=== PATIENT | female | born 1960 | race Caucasian/White ===

== ENCOUNTER → 2019-11-04 09:10 | Outpatient (CLI) | payer MEDICARE, SELFPAY ==
--- NOTE | ~2019-11-04 | DEXA_ITS ---
Bone Density Report Name: Sierra Rod Age: 59 Sex: Female Ethnicity: White Date of : 1960 Indication: postmenopausal; screening for osteoporosis; height loss; seizure disorder; hysterectomy; Referring Provider: FABIO FERRIS Study: Bone densitometry was performed. Exam Date: November 04, 2019 Accession number: [id number] Bone Density: Region BMD T-score Z-score Classification AP Spine (L1, L2) 0.959 -0.2 1.1 Normal Femoral Neck (Left) 0.742 -1.0 0.3 Normal Total Hip (Left) 0.897 -0.4 0.5 Normal Femoral Neck (Right) 0.717 -1.2 0.0 Osteopenia Total Hip (Right) 0.835 -0.9 0.0 Normal Total Hip Mean 0.866 -0.7 0.3 Normal World Health Organization criteria for BMD impression classify patients as: Normal (T-score at or above -1.0), Osteopenia (T-score between -1.0 and -2.5), or Osteoporosis (T-score at or below -2.5). 10-year Fracture Risk(1): Major Osteoporotic Fracture 6.7% Hip Fracture 0.4% Reported Risk Factors: [place] (), Neck BMD=0.717, BMI=33.1 (1) FRAX(R) Version 3.08. Fracture probability calculated for an untreated patient. Fracture probability may be lower if the patient has received treatment. Clinical Information Provided by Patient: Has used the following medications: Vitamin D, Calcium Has the following medical conditions: Any Seizure Disorders, Hysterectomy Patient maximum height was 64.5 Menopause Age: 26 Onset of menses at age 13 Number of children 0 Impression: The patient has low bone mass, based on the Right Femoral Neck T-score. The patient has an estimated ten-year risk of hip fracture of 0.4% and an estimated ten-year risk of major fracture of 6.7%, based on the WHO FRAX algorithm. Discussion: BONE DENSITY IS LOW AT ONE OR MORE SKELETAL SITES. This patient's lowest T-score is low at one or more skeletal sites. It meets the World Health Organization's (WHO) criteria for ?low bone mass? (T-score between -1.0 and -2.5). The patient's 10-year risk of fracture as calculated by FRAX is less than the threshold where pharmacological therapy is recommended by the National Osteoporosis Foundation (NOF). However, all treatment decisions require clinical judgment and consideration of individual patient factors, including patient preferences, comorbidities, previous drug use, risk factors not captured in the FRAX model (e.g., frailty, falls, vitamin D deficiency, increased bone turnover, interval significant decline in bone density) and possible under or overestimation of fracture risk by FRAX. The patient should follow a healthful lifestyle (good nutrition with adequate calcium and vitamin D, and appropriate weight-bearing exercise). Follow-Up: Consider repeating this study in 2 to 3 years to reassess this patient's status, or sooner if there is some new cl
== END ==
DX: Z78.0 Asymptomatic menopausal state (principal); M85.88 Other specified disorders of bone density and structure, other site
CPT/HCPCS: 77080

== ENCOUNTER 2019-11-06 02:37 | Emergency (ER) | payer MEDICARE, SELFPAY ==
[2019-11-06] VITALS (10 sets, daily range): BP systolic 136–173; BP diastolic 60–98; PULSE 74–93; RESP 10–17; TEMP 36.9; O2SAT 97–100
--- NOTE | ~2019-11-06 | XR_ITS ---
EXAMINATION: XR chest 2V 11/06/2019 03:08 INDICATION: Midline chest pain PROCEDURE: PA and lateral views of the chest COMPARISON: Comparison to multiple prior studies sequentially, with oldest reviewed study dated 05/2009. FINDINGS: The lungs are clear. The cardiomediastinal silhouette is within normal limits. There are no pleural effusions. There is no pneumothorax suspected. There is surgical hardware overlying the lower cervical and upper lumbar spine. IMPRESSION: 1: NO ACUTE CARDIOPULMONARY DISEASE. Reviewed, dictated and finalized at location A.
--- NOTE | 2019-11-06 02:44 | ED.CHESTPAIN ---
HPI - Chest Pain General Chief Complaint: Chest Pain Stated Complaint: chest pain Time Seen by Provider: 11/06/19 02:44 Source: patient and EMS Mode of arrival: EMS Limitations: no limitations History of Present Illness HPI narrative: The patient is a 59-year-old woman with history of previous CVA,seizure disorder, diabetes, hypertension, type 2 diabetes mellitus, and STEMI in 2019 who presents for evaluation of chest pain. Patient states chest pain awaken her from sleep, described as epigastric in nature with radiation into the chest and mildly to the left side. No radiation to the jaw, neck, shoulder or arm. Patient states she had an associated headache and dizziness with the pain. She denies diaphoresis but reports nausea, and mild shortness of breath that is since resolved. No fever, cough or hemoptysis. Chest pain is currently mild in nature. Patient states this does not feel like acid reflux type pain. She states that the difference between this and when she had her NSTEMI is that with that she was diaphoretic. Patient follows with a r&d lab technician Dr. Chase at [facility]. Patient describes the dizziness as a unsteady feeling, denies current spinning sensation. No current double vision. Related Data Home Medications Medication Instructions Recorded Confirmed calcitriol 11/06/19 cholecalciferol (vitamin D3) 100 mcg PO DAILY 11/06/19 clopidogrel 75 mg PO DAILY 11/06/19 cyclosporine 1 drp OPHTHALMIC (EYE) Q12H 11/06/19 ergocalciferol (vitamin D2) 1,250 mcg PO WEEKLY 11/06/19 fenofibrate micronized 200 mg PO DAILY 11/06/19 furosemide 20 mg PO DAILY 11/06/19 metoprolol succinate 50 mg PO DAILY 11/06/19 morphine 15 mg PO Q8H 11/06/19 omeprazole 11/06/19 oxcarbazepine [Trileptal] 300 mg PO BID 11/06/19 polyethylene glycol 3350 [Miralax] 17 g PO DAILY 11/06/19 potassium chloride meq PO 11/06/19 tizanidine 2 mg PO Q8H PRN 11/06/19 topiramate 11/06/19 Allergies Allergy/AdvReac Type Severity Reaction Status Date / Time duloxetine Allergy Mild Unknown Verified 11/06/19 03:06 lamotrigine Allergy Mild Unknown Verified 11/06/19 03:06 meperidine Allergy Mild Unknown Verified 11/06/19 03:06 methadone Allergy Mild Unknown Verified 11/06/19 03:06 simvastatin Allergy Mild Unknown Verified 11/06/19 03:06 sumatriptan Allergy Mild Unknown Verified 11/06/19 03:06 acetaminophen Allergy Unknown Unknown Verified 11/06/19 03:06 adhesive tape Allergy Unknown Unknown Verified 11/06/19 03:06 baclofen Allergy Unknown Unknown Verified 11/06/19 03:06 ciprofloxacin Allergy Unknown Unknown Verified 11/06/19 03:06 hydromorphone Allergy Unknown Unknown Verified 11/06/19 03:06 Influenza Virus Vaccines Allergy Unknown Dyspnea / Verified 11/06/19 03:06 SOB metrizamide Allergy Unknown Unknown Verified 11/06/19 03:06 vancomycin Allergy Unknown Unknown Verified 11/06/19 03:06 Contrast Media Allergy Mild Unknown Uncoded 11/06/19 03:06 DULOXETINE HCL Allergy Mild Unknown Uncoded 11/06/19 03:06 SUMATRIPTAN SUCCINATE Allergy Mild Unknown Uncoded 11/06/19 03:06 CEPHALEXIN MONOHYDRATE Allergy Unknown Unknown Uncoded 11/06/19 03:06 OXYCODONE HCL Allergy Unknown Unknown Uncoded 11/06/19 03:06 Review of Systems Review of Systems: Narrative: CONSTITUTIONAL: Denies fever, chills, or sweats. EYES: Denies visual changes, redness, or discharge. ENT: Denies rhinorrhea, congestion, sore throat, or otalgia. CARDIOVASCULAR: Reporting chest pain. RESPIRATORY: Denies cough or dyspnea. GASTROINTESTINAL: Denies abdominal pain, nausea, vomiting, or diarrhea. GENITOURINARY: Denies dysuria or hematuria. SKIN: Denies rash or itching. MUSCULOSKELETAL: Denies back pain, joint pain, or myalgia. NEUROLOGIC: Denies headache, numbness, or weakness. Reporting dizziness PSYCHIATRIC: Denies anxiety or depression. [facility] Past Medical History Medical History (Updated 11/06/19 @ 06:36 by Alanis Li MD) CVA (cerebral vascular accident) Diabetes Hyperlipide
--- NOTE | 2019-11-06 02:47 | ECG_ITS ---
Measurements Intervals [place] Rate: 80 P: -1 MT: 143 QRS: 4 QRSD: 98 T: 53 QT: 412 QTc: 476 Interpretive Statements SINUS RHYTHM POSSIBLE LEFT ATRIAL ENLARGEMENT BASELINE ARTIFACT- I, III, AVL BORDERLINE ECG Electronically Signed On 11-06-2019 7:01:57 CDT by Arnaldo Haywood D.O.
[2019-11-06 02:55] LABS: Basophils Percent Auto 0.6 % (0.2-1.2); Hematocrit 37.9 % (37.0-47.0); Immature Granulocyte Absolute 0.04 K/mm3 (0.00-0.031); Immature Granulocyte Percent A 0.8 % (0-0.5); Lymphocytes Absolute Auto 0.47 K/mm3 (0.9-3.2); Mean Corpuscular HGB Conc 34.3 g/dl (32-36); Mean Corpuscular Hemoglobin 30.7 pg (26-34); Mean Corpuscular Volume 89.6 fl (80-100); Mean Platelet Volume 11.2 fl (7.4-10.4); Monocytes Absolute Auto 0.1 K/mm3 (0.1-0.6); Monocytes Percent Auto 2.7 % (2.6-8.5); Neutrophils Absolute Auto 4.5 K/mm3 (1.3-6.7); Neutrophils Percent Auto 86.9 % (45.5-73.1); Platelet Count Result 200 k/mm3 (150-375); Red Blood Count 4.23 M/mm3 (4.2-5.4); Red Cell Distribution Width 11.9 % (11.5-14.5); White Blood Count 5.2 K/mm3 (4.5-10.0)
[2019-11-06 03:05] LABS: INR 1.3; Prothrombin Time 15.7 Seconds (11.1-14.7)
[2019-11-06 03:07] LABS: Anion Gap 14 mmol/L (8-16); Blood Urea Nitrogen 18 mg/dL (7-17); Calcium 9.5 mg/dL (8.4-10.2); Carbon Dioxide 18 mmol/L (22-30); Chloride 98 mmol/L (98-107); Estimated CRCL calculation 74 ml/min; Estimated Glomerular Filt Rate > 60; Glucose 108 mg/dL (65-105); Potassium 3.9 mmol/L (3.4-5.0); Sodium 130 mmol/L (137-145)
[2019-11-06 03:19] LABS: Troponin I < 0.012 ng/mL (0.000-0.034)
[2019-11-06] MEDS: ONDANSETRON INJ 4 MG/2 ML VIAL IV PUSH (03:24)
[2019-11-06] MEDS: ASPIRIN 81 MG CHEWABLE TABLET 324 MG PO (03:24)
[2019-11-06] MEDS: NITROGLYCERIN SL 0.4 MG TABLET SUBLINGUAL (03:25)
--- NOTE | 2019-11-06 05:28 | ECG_ITS ---
SINUS RHYTHM POSSIBLE LEFT ATRIAL ENLARGEMENT BASELINE ARTIFACT- I, III, AVL BORDERLINE ECG Electronically Signed On 11-06-2019 7:01:57 CDT by Arnaldo Haywood D.O. COMPARED TO ECG 11/01/2018 08:38:40 SINUS RHYTHM NOW PRESENT MTDD
[2019-11-06 06:32] LABS: Troponin I < 0.012 ng/mL (0.000-0.034)
--- NOTE | 2019-11-06 06:58 | PC.NURSE ---
ETA for ambulance 0730.
--- NOTE | 2019-11-06 07:31 | PC.NURSE ---
To outside hospital via ems. no active chest pain or sob. vitals stable.
== END 2019-11-06 07:33 | disposition short-term general hospital (02) ==
PROVIDERS: Emergency Provider Emergency Medicine; PCP Hospitalist
DX: R07.9 Chest pain, unspecified (principal); Z86.73 Personal history of transient ischemic attack (TIA), and cerebral infarction without residual deficits; G40.909 Epilepsy, unspecified, not intractable, without status epilepticus; E11.9 Type 2 diabetes mellitus without complications; I10 Essential (primary) hypertension; I25.2 Old myocardial infarction; E78.5 Hyperlipidemia, unspecified; R94.31 Abnormal electrocardiogram [ECG] [EKG]
CPT/HCPCS: 36415; 71046; 80048; 84484; 85025; 85610; 85730; 93005; 96374; 99285; A9270; J2405

== ENCOUNTER 2019-12-29 10:38 | Outpatient (CLI) | payer MEDICARE, SELFPAY ==
--- NOTE | ~2019-12-29 | XR_ITS ---
EXAMINATION: XR tibia fibula RT 2V EXAM DATE: 12/29/2019 12:14 INDICATION: Right leg pain, several recent falls. TECHNIQUE: Right tibia/fibula frontal and lateral projections obtained and reviewed. Comparison is ma clarissa to prior examination from 09/10/2009. FINDINGS: Right tibial and fibular shafts unremarkable. There are no acute fractures or dislocations identified. There is no subcutaneous gas. The soft tissue is unremarkable. There are no radiopaq ue foreign bodies. IMPRESSION: 1. Unremarkable XR tibia fibula RT 2V exam. Reviewed, dictated and finalized at location A. R RELATIONS TEACHER
--- NOTE | ~2019-12-29 | XR_ITS ---
EXAMINATION: XR foot RT min 3V EXAM DATE: 12/29/2019 12:14 INDICATION: Had several falls recently. pt states having numbness in 4th toe and pain in 4th metatars al area. TECHNIQUE: Right foot dorsoplantar, lateral and oblique projections obtained and reviewed. There is no prior study for comparison. FINDINGS: Right metatarsal bones unremarkable. There are no acute fractures or dislocations identifi ed. There is no subcutaneous gas. The soft tissue is unremarkable. There are no radiopaque foreig n bodies. 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 IMPRESSION: No acute osseous findings. Reviewed, dictated and finalized at location A. ECTION PRINTER IMPRESSION: No acute osseous findings.
== END 2019-12-29 10:39 ==
DX: M89.8X9 Other specified disorders of bone, unspecified site (principal)
CPT/HCPCS: 73590; 73630

== ENCOUNTER 2020-11-14 10:55 | Outpatient (CLI) | payer MEDICARE, SELFPAY ==
--- NOTE | ~2020-11-14 | US_ITS ---
EXAMINATION: US renal BI DATE: 11/14/2020 11:14 INDICATION: Disorder of kidney and ureters. Acute renal insufficiency. TECHNIQUE: Multiple ultrasound grayscale images of the kidneys were obtained. COMPARISON: CT dated 11/01/2018 FINDINGS: The right kidney measures 9.8 x 4.0 x 4.9 cm. The left kidney measures 10.0 x 5.3 x 5.5 cm. The kidne ys demonstrate normal echogenicity. There is no hydronephrosis in either kidney. No stones identifie d. The bladder is normal. IMPRESSION: 1. Normal kidneys without hydronephrosis. Reviewed, dictated and finalized at location B.
== END 2020-11-14 10:56 ==
PROVIDERS: PCP Family Medicine; Visit Provider Internal Medicine Nephrology
DX: N28.9 Disorder of kidney and ureter, unspecified (principal)
CPT/HCPCS: 76775

== ENCOUNTER 2020-11-14 12:41 | Emergency (ER) | payer MEDICARE, SELFPAY ==
--- NOTE | ~2020-11-14 | XR_ITS ---
XR hip BI wo pelvis DATE: 11/14/2020 13:40 INDICATION: Fall 3 days ago down 7 steps. Bilateral hip pain, greater on the right TECHNIQUE: AP, lateral, crosstable lateral views of each hip COMPARISON: None FINDINGS: Some hardware from lumbar spinal fusion is partially visualized. The pubic symphysis and sacroiliac joints appear intact. There is no evidence of left or right hip fracture or dislocation, avascular necrosis or bone destruc tion. The hip joints are well preserved. IMPRESSION: No fracture or dislocation of the hips Reviewed, dictated and finalized at location A.
[2020-11-14 12:53] VITALS: BP 129/78; PULSE 78; RESP 16; TEMP 37.2; O2SAT 99
--- NOTE | 2020-11-14 12:53 | ED.FALL ---
HPI - Fall General Chief Complaint: Extremity Injury, Lower Stated Complaint: Fall Time Seen by Provider: 11/14/20 13:00 Source: patient and RN notes reviewed Mode of arrival: ambulatory Limitations: no limitations History of Present Illness HPI Narrative: 60-year-old female with history of STEMI, seizure disorder, diabetes, hypertension presents with concern for bilateral hip pain. Reports primarily right hip pain, new hip pain starting today. Reports she had a fall down the stairs several days ago, reports right hip pain since that point. Reports she uses a cane at baseline, has continued to need that cane for mobility. She reports chronic bone pain for which she has seen her primary care doctor complaint: fall Related Data Home Medications Medication Instructions Recorded Confirmed calcitriol 0.5 mcg PO DAILY 11/06/19 11/14/20 clopidogrel 75 mg PO DAILY 11/06/19 11/14/20 cyclosporine 1 drp OPHTHALMIC (EYE) Q12H 11/06/19 11/14/20 fenofibrate micronized 200 mg PO DAILY 11/06/19 11/14/20 furosemide 20 mg PO DAILY 11/06/19 11/14/20 polyethylene glycol 3350 [Miralax] 17 g PO DAILY 11/06/19 11/14/20 metoprolol tartrate 25 mg tablet 25 mg PO BID tablet 02/25/20 11/14/20 topiramate 200 mg tablet 600 mg PO BID tablet 02/25/20 11/14/20 cholecalciferol (vitamin D3) 125 125 mcg PO DAILY 10/12/20 11/14/20 mcg (5,000 unit) capsule ezetimibe 10 mg tablet 10 mg PO DAILY 10/12/20 11/14/20 morphine 30 mg capsule,extended 90 mg PO DAILY cap 10/12/20 11/14/20 release pellets omeprazole 20 mg capsule,delayed 40 mg PO BID cap 10/12/20 11/14/20 release oxcarbazepine 300 mg tablet 300 mg PO BID 10/12/20 11/14/20 potassium chloride 20 mEq 20 meq PO DAILY 10/12/20 11/14/20 tablet,extended release(part/cryst) epinephrine [EpiPen 2-Mario] 0.3 mg IM PRN PRN 11/14/20 11/14/20 Allergies Allergy/AdvReac Type Severity Reaction Status Date / Time Influenza Virus Vaccines Allergy Severe Dyspnea / Verified 11/14/20 13:38 SOB metrizamide Allergy Severe hypertensive Verified 11/14/20 13:38 crisis vancomycin Allergy Severe Anaphylaxis Verified 11/14/20 13:38 baclofen Allergy Intermediate toxic Verified 11/14/20 13:38 acetaminophen Allergy Mild Rash Verified 11/14/20 13:38 adhesive tape Allergy Mild rash Verified 11/14/20 13:38 ciprofloxacin Allergy Mild hives Verified 11/14/20 13:38 duloxetine Allergy Mild lethargy Verified 10/12/20 10:16 hydromorphone Allergy Mild Itching Verified 11/14/20 13:38 lamotrigine Allergy Mild Rash Verified 10/12/20 10:16 meperidine Allergy Mild Rash Verified 10/12/20 10:16 methadone Allergy Mild Nausea and Verified 10/12/20 10:16 Vomiting simvastatin Allergy Mild Itching Verified 10/12/20 10:16 sumatriptan Allergy Mild Unknown Verified 10/12/20 10:16 Contrast Media Allergy Severe Hypertensio Uncoded 11/14/20 13:38 n CEPHALEXIN MONOHYDRATE Allergy Mild Hives Uncoded 11/14/20 13:38 DULOXETINE HCL Allergy Mild Hives Uncoded 11/14/20 13:38 OXYCODONE HCL Allergy Mild Hives Uncoded 11/14/20 13:38 SUMATRIPTAN SUCCINATE Allergy Mild Hives Uncoded 11/14/20 13:39 Review of Systems Review of Systems: CONSTITUTIONAL: Denies malaise, chills, sweats, or fever. SKIN: Denies bruising, redness, swelling, warmth unless MUSCULOSKELETAL: Reports bilateral hip pain NEUROLOGIC: Denies numbness, weakness All systems reviewed & are unremarkable except as noted in HPI and below PMFSH Past Medical History Medical History Chronic renal insufficiency, stage II (mild) CVA (cerebral vascular accident) Diabetes Hyperlipidemia Hypertension Paresthesia Seizure disorder STEMI (ST elevation myocardial infarction) Social History Social History Smoking status: Never smoker Second hand tobacco smoke exposure: No Alcohol intake: never Substance use: never Substance use type: does not use Gender identity (if v
== END 2020-11-14 14:20 | disposition home or self-care (01) ==
PROVIDERS: Emergency Provider Nurse Practitioner; PCP Family Medicine
DX: M25.552 Pain in left hip (principal); M25.551 Pain in right hip; I12.9 Hypertensive chronic kidney disease with stage 1 through stage 4 chronic kidney disease, or unspecified chronic kidney disease; E11.22 Type 2 diabetes mellitus with diabetic chronic kidney disease; N18.2 Chronic kidney disease, stage 2 (mild); Z79.84 Long term (current) use of oral hypoglycemic drugs; E78.5 Hyperlipidemia, unspecified; Z86.73 Personal history of transient ischemic attack (TIA), and cerebral infarction without residual deficits; I25.2 Old myocardial infarction; G40.909 Epilepsy, unspecified, not intractable, without status epilepticus
CPT/HCPCS: 73521; 99213; G0463

== ENCOUNTER 2021-06-19 12:12 | Inpatient (IN) | payer MEDICARE, SELFPAY ==
[2021-06-19] VITALS (30 sets, daily range): BP systolic 109–137; BP diastolic 70–98; PULSE 86–115; RESP 7–26; TEMP 36.3; O2SAT 96–100
--- NOTE | ~2021-06-19 | XR_ITS ---
XR abdomen/kub 1V DATE: 06/25/2021 12:49 INDICATION: Abdominal pain, increased abdominal distention TECHNIQUE: 2 AP views COMPARISON: 06/22/2021 Limited abdominal ultrasound examination 06/19/[address] abdomen pelvis FINDINGS: Bilateral calcified renal calculi. There is gaseous distention of the rectum and much of the colon but no apparent bowel obstruction. The lower lung abreu are clear. Heart size is normal. Status post anterior and posterior surgical fusion of the lumbar spine. IMPRESSION: Gaseous distention of nondilated large bowel; No apparent bowel obstruction Bilateral nephrolithiasis Status post surgical lumbar spine fusion Reviewed, dictated and finalized at [facility]. Reviewed, dictated and finalized at location A. IMPRESSION: Gaseous distention of nondilated large bowel; No apparent bowel obs truction Bilateral nephrolithiasis Status post surgical lumbar spine fusion
--- NOTE | ~2021-06-19 | CT_ITS ---
EXAMINATION: CT brain wo con DATE: 06/19/2021 14:36 INDICATION: fall, head trauma TECHNIQUE: Computed tomography (CT) of the head was performed without intravenous contrast. The mA wa s adjusted according to patient size. Iterative reconstruction technique was employed. The dose-lengt h product was 605.33 mGy-cm. COMPARISON: 06/29/2018. FINDINGS: No acute intracranial hemorrhage or extra-axial fluid collection. No hydrocephalus, mass, or herniation. No acute ischemic infarct. Unremarkable dural venous sinus attenuation. No acute osseous abnormality. The aerated spaces are clear. Mild chronic white matter change. Atherosclerotic intracranial calcifications. Hyperostosis. IMPRESSION: No acute intracranial process. Reviewed, dictated and finalized at location K.
--- NOTE | ~2021-06-19 | XR_ITS ---
EXAMINATION: XR chest 1V portable INDICATION: Chest pain TECHNIQUE: Portable AP chest at 1102 hours COMPARISON: 06/19/2021 FINDINGS: The lungs are free of acute opacities. There is no pleural effusion or pneumothorax. The ca rdiomediastinal silhouette is normal. Surgical changes are noted at the cervicothoracic junction. IMPRESSION: 1. No acute cardiopulmonary abnormality. Reviewed, dictated and finalized at location A.
--- NOTE | ~2021-06-19 | XR_ITS ---
EXAMINATION: XR abdomen/kub 1V INDICATION: Ileus versus small bowel obstruction TECHNIQUE: Supine views of the abdomen were obtained on 2 radiographs. COMPARISON: CT, 06/19/2021 FINDINGS: No dilated loops of bowel are evident. The small bowel is relatively gasless. There is gas in the colon to the level of the rectum. Stones of the left kidney measure up to 7 mm. Punctate right nephrolithiasis is also noted. The lung bases are clear. Fusion hardware is noted in the lower lumba r spine. IMPRESSION: 1. No dilated bowel loops identified. Reviewed, dictated and finalized at location A.
--- NOTE | ~2021-06-19 | XR_ITS ---
EXAMINATION: XR chest 1V portable INDICATION: Chest pain TECHNIQUE: Portable AP chest at 1432 hours COMPARISON: 1240 hours FINDINGS: The lungs are free of acute opacities. There is no pleural effusion or pneumothorax. The ca rdiomediastinal silhouette is normal. Surgical changes are noted at the palmar cervical spine. IMPRESSION: 1. No acute cardiopulmonary abnormality. Reviewed, dictated and finalized at location A.
--- NOTE | ~2021-06-19 | US_ITS ---
EXAMINATION: US venous doppler [facility] DATE: 06/22/2021 10:32 INDICATION: Shortness of breath TECHNIQUE: Grayscale ultrasound images without and with compression and Doppler ultrasound images of the bilateral lower extremity veins were obtained. COMPARISON: None. FINDINGS: The visualized portions of right common femoral vein, profunda (deep) femoral vein, femoral vein, pop liteal vein, posterior tibial veins, peroneal veins, gastrocnemius vein and greater saphenous vein ou tflow are patent. The visualized portions of left common femoral vein, profunda femoral vein, femoral vein, popliteal v ein, posterior tibial veins, peroneal veins, gastrocnemius vein and greater saphenous vein outflow ar e patent. IMPRESSION: 1. No deep venous thrombosis in either lower limb. Reviewed, dictated and finalized at location A.
--- NOTE | ~2021-06-19 | CT_ITS ---
EXAMINATION: CT abdomen pelvis wo con DATE: 06/19/2021 14:36 INDICATION: h/o ileus and abd sgy, p/w n/v TECHNIQUE: Computed tomography (CT) of the abdomen and pelvis was performed without intravenous contr ast. Automated exposure control and iterative reconstruction technique were employed. The dose-length product was 957.89 mGy-cm. COMPARISON: 11/01/2018 FINDINGS: Lower thorax: Unremarkable Liver: Normal. Biliary/Gallbladder: Gallbladder is normal. No bile duct dilation. Spleen: Normal. Pancreas: No mass or duct dilation. Adrenals:No mass. Kidneys: Multiple nonobstructive bilateral renal calculi. No mass or hydronephrosis. GI tract: Multiple loops of mildly dilated small bowel in the left upper quadrant, with no transition point. Fluid-filled colon. Scattered diverticuli without diverticulosis. Duodenal diverticulum. Norm al appendix. Mesentery/Peritoneum: No ascites, mass, or free air. Retroperitoneum: No mass. Pelvis: Pelvic organs are within normal limits. Soft Tissues: Soft tissues and body wall unremarkable. Bones: No acute osseous finding. Extensive lumbar fusion including stable fractured screws. IMPRESSION: Multiple loops of dilated jejunum, likely representing ileus. Early obstruction is not excluded. [place] bladimir findings as can be seen with diarrheal illness. Reviewed, dictated and finalized at location K. IMPRESSION: Multiple loops of dilated jejunum, likely representing ileus. Early obstruction is not excluded. Colonic findings as can be seen with diarrheal illness.
--- NOTE | ~2021-06-19 | XR_ITS ---
XR pelvis 1-2V DATE: 06/19/2021 14:40 INDICATION: Pelvic pain. Multiple recent falls. TECHNIQUE: Portable AP views COMPARISON: None FINDINGS: Anterior and posterior lumbar spinal fusion is noted, including pedicles and rods from L3-L 5 and anterior plate and screws at L4-5. Normal alignment at the pubic symphysis and sacroiliac joints. No pelvic fracture or bone destruction is detected. Normal alignment and relative preservation of the hip joint spaces. Incidentally noted is a calcified calculus of the lower pole of the left kidney and probably right ki dney as well. IMPRESSION: No pelvic fracture detected Reviewed, dictated and finalized at location B. IMPRESSION: No pelvic fracture detected
--- NOTE | ~2021-06-19 | XR_ITS ---
XR chest 1V portable DATE: 06/19/2021 12:50 INDICATION: Shortness of breath TECHNIQUE: Portable upright AP chest on 06/19/2021 at 1245 hours COMPARISON: 11/06/2019 PA and lateral chest FINDINGS: Normal heart size. No hilar or mediastinal enlargement. No pulmonary infiltrate or consolidation, pleural effusion or pulmonary vascular congestion or pneumo thorax. Status post anterior and posterior cervical spine surgical fusion and lumbar posterior spinal fusion with pedicle screws and rods. IMPRESSION: No active cardiopulmonary disease Surgical fusion of the cervical and lumbar spine Reviewed, dictated and finalized at location B.
--- NOTE | ~2021-06-19 | US_ITS ---
US abdomen limited INDICATION: PROCEDURE: Realtime right upper abdominal ultrasound. COMPARISON: No prior studies for comparison. FINDINGS: The pancreas is normal without focal mass or pancreatic ductal dilation. Liver echotexture is increased, consistent with fatty infiltration. There is normal directional flow in the portal ve in. There is mild gallbladder wall thickening. Gallbladder wall measures 5 mm. No gallstones or perichole cystic fluid. Common bile duct measures 7 mm. No sonographic Lagunas's sign. IMPRESSION: 1: Hepatic steatosis. 2: Gallbladder wall thickening. This could indicate interstitial edema, chronic liver disease or chr onic cholecystitis. Reviewed, dictated and finalized at location A. IMPRESSION: 1: Hepatic steatosis. 2: Gallbladder wall thickening. This could indicate interstitial edema, chroni c liver disease or chronic cholecystitis.
--- NOTE | 2021-06-19 12:31 | ECG_ITS ---
Measurements Intervals [place] Rate: 104 P: 50 VA: 133 QRS: 53 QRSD: 93 T: 24 QT: 333 QTc: 438 Interpretive Statements SINUS TACHYCARDIA ST-T WAVE ABNORMALITY IN ANTEROLAT/INF LEADS- CONSIDER ISCHEMIA ABNORMAL ECG Electronically Signed On 06-19-2021 13:28:40 CDT by Arnaldo Haywood D.O.
[2021-06-19 13:01] LABS: Basophils Percent Auto 0.2 % (0.2-1.2); Hematocrit 47.7 % (37.0-47.0); Hemoglobin 15.2 g/dL (12.0-15.0); Immature Granulocyte Absolute 0.08 K/mm3 (0.00-0.031); Immature Granulocyte Percent A 0.5 % (0-0.5); Lymphocytes Absolute Auto 0.43 K/mm3 (0.9-3.2); Lymphocytes Percent Auto 2.9 % (18.3-44.2); Mean Corpuscular HGB Conc 31.9 g/dl (32-36); Mean Corpuscular Hemoglobin 29.9 pg (26-34); Mean Corpuscular Volume 93.7 fl (80-100); Mean Platelet Volume 10.9 fl (7.4-10.4); Monocytes Absolute Auto 0.2 K/mm3 (0.1-0.6); Monocytes Percent Auto 1.3 % (2.6-8.5); Neutrophils Absolute Auto 14.1 K/mm3 (1.3-6.7); Neutrophils Percent Auto 95.1 % (45.5-73.1); Platelet Count Result 267 k/mm3 (150-375); Red Blood Count 5.09 M/mm3 (4.2-5.4); Red Cell Distribution Width 13.6 % (11.5-14.5); White Blood Count 14.8 K/mm3 (4.5-10.0)
[2021-06-19 13:10] LABS: Alanine Aminotransferase 35 U/L (6-35); Albumin Level 4.8 g/dL (3.5-5.1); Alkaline Phosphatase 103 U/L (38-126); Anion Gap 11 mmol/L (8-16); Aspartate Amino Transferase 41 U/L (14-36); Bilirubin,Total 0.6 mg/dL (0.2-1.3); Blood Urea Nitrogen 26 mg/dL (7-17); Calcium 9.7 mg/dL (8.4-10.2); Carbon Dioxide 18 mmol/L (22-30); Chloride 109 mmol/L (98-107); Estimated CRCL calculation 51 ml/min; Estimated Glomerular Filt Rate 57; Glucose 181 mg/dL (65-110); Potassium 3.7 mmol/L (3.4-5.0); Sodium 138 mmol/L (137-145)
[2021-06-19 13:31] LABS: Platelet Estimate Adequate (Adequate)
[2021-06-19 13:32] LABS: Anisocytosis 1+ (NORMAL)
[2021-06-19] MEDS: ONDANSETRON INJ 4 MG/2 ML VIAL IV PUSH (14:39)
[2021-06-19 14:41] LABS: NT Pro B Type Natriuretic Pept 314 pg/mL (5-100); Troponin I < 0.012 ng/mL (0.000-0.034)
--- NOTE | 2021-06-19 16:23 | PCCCNOTE ---
met with patient bedside, patient is alert and oriented x4, was I ADL prior to fall down 14 stairs one week ago. CC offered home health and patient stated that she does not want home health due to her living conditions. she stated that there is not any room for anyone to come in. CC offered her a list of assisted living, patient states she does not have the money to pay for assisted living, CC asked if patient has applied for [place] medicaid, and patient stated that her $2,000 income is too much to qualify for [place] Medicaid. CC asked patient if she would be able to privately pay for a skilled nursing, patient does not have the funds. per ED MD, patient will be admitted [facility] for therapy evals and a high WBC work up.
--- NOTE | 2021-06-19 16:25 | ED.GENADULT ---
HPI - General Adult General Chief complaint: Shortness of Breath/Dyspnea Stated complaint: SOB Time Seen by Provider: 06/19/21 13:56 History of Present Illness HPI narrative: Patient states that she has been having some difficulty breathing, nausea and vomiting for the last few days, denies any fevers or chills but states that she is just not feeling well. Denies any chest pain at this time, she has had heart attack in the past and says this feels different. Says she has not had a good bowel movement in days. She states that she has also been falling recently at home because her hips have been hurting, and she is having difficulty walking, she actually fell down 14 steps and thinks she did hit her head. She did cut up her left arm. Radiation: non-radiation Related Data Home Medications Medication Instructions Recorded Confirmed calcitriol 0.5 mcg PO DAILY 11/06/19 11/14/20 cyclosporine 1 drp OPHTHALMIC (EYE) Q12H 11/06/19 11/14/20 fenofibrate micronized 200 mg PO DAILY 11/06/19 11/14/20 furosemide 20 mg PO DAILY 11/06/19 11/14/20 polyethylene glycol 3350 [Miralax] 17 g PO DAILY 11/06/19 11/14/20 metoprolol tartrate 25 mg tablet 25 mg PO BID tablet 02/25/20 11/14/20 topiramate 200 mg tablet 600 mg PO BID tablet 02/25/20 11/14/20 morphine 30 mg capsule,extended 90 mg PO DAILY cap 10/12/20 11/14/20 release pellets oxcarbazepine 300 mg tablet 300 mg PO BID 10/12/20 11/14/20 potassium chloride 20 mEq 20 meq PO DAILY 10/12/20 11/14/20 tablet,extended release(part/cryst) epinephrine [EpiPen 2-Mario] 0.3 mg IM PRN PRN 11/14/20 11/14/20 Allergies Allergy/AdvReac Type Severity Reaction Status Date / Time Influenza Virus Vaccines Allergy Severe Dyspnea / Verified 06/19/21 12:32 SOB metrizamide Allergy Severe hypertensive Verified 06/19/21 12:32 crisis vancomycin Allergy Severe Anaphylaxis Verified 06/19/21 12:32 baclofen Allergy Intermediate toxic Verified 06/19/21 12:32 acetaminophen Allergy Mild Rash Verified 06/19/21 12:32 adhesive tape Allergy Mild rash Verified 06/19/21 12:32 ciprofloxacin Allergy Mild hives Verified 06/19/21 12:32 duloxetine Allergy Mild lethargy Verified 06/19/21 12:32 hydromorphone Allergy Mild Itching Verified 06/19/21 12:32 lamotrigine Allergy Mild Rash Verified 06/19/21 12:32 meperidine Allergy Mild Rash Verified 06/19/21 12:32 methadone Allergy Mild Nausea and Verified 06/19/21 12:32 Vomiting simvastatin Allergy Mild Itching Verified 06/19/21 12:32 sumatriptan Allergy Mild Unknown Verified 06/19/21 12:32 oxcarbazepine Allergy Other Verified 06/19/21 12:32 Contrast Media Allergy Severe Hypertensio Uncoded 06/19/21 12:32 n CEPHALEXIN MONOHYDRATE Allergy Mild Hives Uncoded 06/19/21 12:32 DULOXETINE HCL Allergy Mild Hives Uncoded 06/19/21 12:32 OXYCODONE HCL Allergy Mild Hives Uncoded 06/19/21 12:32 SUMATRIPTAN SUCCINATE Allergy Mild Hives Uncoded 06/19/21 12:32 Review of Systems Constitutional: Constitutional: Reports body ache(s) and Reports fatigue Eyes: Eyes: Reports no additional eye complaints ENT: Reports system reviewed and no additional complaints, except as documented Cardiovascular: Cardiovascular: Denies chest pain Respiratory: Respiratory: Reports cough and Reports dyspnea on exertion Gastrointestinal: Gastrointestinal: Reports abdominal pain and Reports nausea Musculoskeletal: Musculoskeletal: Reports arthralgias Integumentary/Breasts: Comments: Abrasions left arm Neurologic: Reports frequent falls, Denies Sensory deficit (Neuro), Denies tingling and Denies weakness Psychiatric: Psychiatric: Reports no additional psychiatric complaints PMFSH Past Medical History Medical History Chronic renal insufficiency, stage II (mild) CVA (cerebral vascular accident) Diabetes Hyperlipidemia Hypertension Paresthesia Seizure disorder STEMI (ST elevation myocardial infarction) Social History Social History (Reviewed
[2021-06-19 17:48] LABS: SARS-CoV-2 RNA PCR Negative
[2021-06-19] MEDS: SODIUM CHLORIDE 0.9% IV 1,000 ML 100 ML IV CONT (19:59)
--- NOTE | 2021-06-19 20:05 | PM.IMHP ---
H&P: HPI History of Present Illness Date/Time: 06/19/21 20:05 Chief Complaint: Nausea and vomiting. Narrative: This is a 60-year-old female with past medical history significant for seizure disorder, type 2 diabetes mellitus, chronic pain syndrome, cerebrovascular accident, dyslipidemia, hypertension, diastolic heart failure, early surgical menopause a 26-year-old, osteopenia. Patient presents to the emergency room due to abdominal pain, nausea, vomiting, 1 episode of diarrhea. Patient has not been able to eat due to intractable nausea and vomiting of 1 day duration, patient also had a mechanical fall 14 steps of flight of stair down in her basement with minor trauma to the skin and no fractures, no loss of consciousness. Patient presents today to the emergency room for evaluation due to abdominal pain which is localized to the right lower quadrant, denies any fevers, rigors, chills, phlegm or blood in the stools, no shortness of breath, no cough, no sputum production. Preliminary workup in the emergency room CT of abdomen and pelvis was significant for ileus. Patient is being admitted for further evaluation, management and treatment. Review of Systems Review of Systems: Nausea, vomiting, abdominal pain. Constitutional: Constitutional: Denies chills, Denies fatigue, Denies fever(s), Denies malaise, Denies night sweats and Denies weakness Eyes: Eyes: Denies change in vision ENT: Denies dysphagia, Denies nasal congestion, Denies nasal discharge, Denies nasal obstruction and Denies odynophagia Cardiovascular: Cardiovascular: Denies chest pain, Denies pedal edema, Denies leg edema, Denies lightheadedness, Denies radiating jaw, neck or arm pain, Denies palpitations and Denies dyspnea on exertion Respiratory: Respiratory: Denies cough and Denies dyspnea Gastrointestinal: Gastrointestinal: Reports abdominal pain, Denies dyspepsia, Denies heartburn, Reports nausea and Reports vomiting Genitourinary: Genitourinary: Denies dysuria Musculoskeletal: Musculoskeletal: Reports back pain and Reports myalgias Integumentary/Breasts: Skin/Breast: Denies rash Neurologic: Denies focal weakness and Denies Sensory deficit (Neuro) Psychiatric: Psychiatric: Reports no additional psychiatric complaints and Reports as per HPI Endocrine: Endocrine: Denies cold intolerance, Denies heat intolerance, Denies polyphagia, Denies polydipsia, Denies polyuria and Denies palpitations Hematologic/Lymphatic: Hematologic/Lymphatic: Reports no additional hematologic/lymphatic complaints and Reports as per HPI Allergic/Immunologic: Allergic/Immunologic: Reports no additional allergic/immunologic complaints and Reports as per HPI [facility] Past Medical History Medical History (Updated 06/20/21 @ 03:52 by Alexsandra May MD) Chronic renal insufficiency, stage II (mild) CVA (cerebral vascular accident) Diabetes Hyperlipidemia Hypertension Paresthesia Seizure disorder STEMI (ST elevation myocardial infarction) Social History Social History Smoking status: Never smoker Second hand tobacco smoke exposure: No Alcohol intake: never Substance use: never Substance use type: does not use Gender identity (if verbalized by the patient): Female Spiritual care concerns: No Meds Home Medications and Allergies Home Medications Medication Instructions Recorded Confirmed Type furosemide 20 mg PO PRN 11/06/19 06/19/21 History metoprolol tartrate 25 mg tablet 25 mg PO BID tablet 02/25/20 06/19/21 History topiramate 200 mg tablet 600 mg PO BID tablet 02/25/20 06/19/21 History morphine 30 mg capsule,extended 90 mg PO DAILY cap 10/12/20 06/19/21 History release pellets potassium chloride 20 mEq 20 meq PO DAILY 10/12/20 06/19/21 History tablet,extended release(part/cryst) ergocalciferol (vitamin D2) 1,250 See Rx Instructions .ROUTE 03/08/21 06/19/21 Rx mcg (50,000 unit) capsule .COMPLEX #12 capsule
--- NOTE | 2021-06-20 | ECHO_ITS ---
Patient Info Name: Sierra Rod Age: 60 years : 1960 Gender: Female Ht: 60 in Wt: 184 lbs BSA: 1.92 m2 HR: 72 bpm BP: 127 / 64 mmHg Heart Rhythm: Sinus Rhythm Technical Quality: Fair Exam Date: 06/20/2021 10:33 AM Exam Location: [facility] Patient Status: Inpatient Admit Date: 06/19/2021 Staff Ordering Physician: Alexsandra May MD [employer] Scientist: Vanessa Guzman RDCS Attending Provider: Nilesh Randhawa M.A., MD Referring Physician: Lalo ZABALA; Exam Type: CA echo doppler color flow Study Info Indications - EKG CHANGES Complete two-dimensional, color flow and Doppler transthoracic echocardiogram is performed. Summary 1. Complete two-dimensional, color flow and Doppler transthoracic echocardiogram is performed. 2. Technically difficult study with limited views. 3. Left ventricular chamber dimension is normal. 4. Left ventricular systolic function is normal, estimated at 65-70%. 5. There is no increased left ventricular wall thickness. 6. The left ventricular diastolic function is grade I diastolic dysfunction. 7. There is mild mitral valve regurgitation. 8. There is trace tricuspid valve regurgitation. 9. No pulmonary hypertension, estimated pulmonary arterial systolic pressure is 20 mmHg. Left Ventricle Left ventricular chamber dimension is normal. Left ventricular systolic function is normal, estimated at 65-70%. There is no increased left ventricular wall thickness. The left ventricular diastolic function is grade I diastolic dysfunction. Technically difficult study with limited views. Right Ventricle Right ventricular chamber dimension is normal. Right ventricular systolic function is normal. Left Atria Left atrial chamber dimension is normal. Right Atria Right atrial chamber dimension is normal. Aortic Valve The aortic valve is trileaflet. There is mild aortic valve sclerosis. There is no aortic valve stenosis. There is no aortic valve regurgitation. Pulmonic Valve The pulmonic valve is not well visualized. Mitral Valve The mitral valve has normal leaflets. There is mild mitral valve regurgitation. The mitral valve annulus is mildly calcified. Tricuspid Valve The tricuspid valve leaflets are normal. There is trace tricuspid valve regurgitation. No pulmonary hypertension, estimated pulmonary arterial systolic pressure is 20 mmHg. Pericardium/Pleural The pericardium appears normal. There is trivial pericardial effusion. Aorta The aortic root size at the sinus of Valsalva is normal. There is mild aortic atherosclerosis. Left Ventricular Outflow Tract Name Value Normal LVOT 2D LVOT Diameter 2.0 cm LVOT Doppler LVOT Peak Gradient 6 mmHg LVOT Mean Gradient 3 mmHg LVOT VTI 26 cm LVOT VTI/AV VTI Ratio 1.0 LVOT Stroke Volume 80 ml LVOT CO 5.9 l/min LVOT CI 3.1 l/min/m2 Pulmonic Valve
[2021-06-20] MEDS: ONDANSETRON INJ 4 MG/2 ML VIAL IV PUSH ×4 (00:20→20:40)
[2021-06-20] MEDS: MORPHINE SULFATE (*CRX) 2 MG/ML INJ IV PUSH (00:53)
--- NOTE | 2021-06-20 03:33 | ECG_ITS ---
Measurements Intervals [place]ha Rate: 84 P: 44 GA: 142 QRS: 48 QRSD: 88 T: 19 QT: 373 QTc: 441 Interpretive Statements SINUS RHYTHM BORDERLINE ST-T WAVE ABNORMALITY- ANT/INF LEADS BORDERLINE ECG Electronically Signed On 06-20-2021 6:34:43 CDT by Arnaldo Haywood D.O.
[2021-06-20 04:28] LABS: Anion Gap 12 mmol/L (8-16); Blood Urea Nitrogen 26 mg/dL (7-17); Calcium 8.8 mg/dL (8.4-10.2); Carbon Dioxide 15 mmol/L (22-30); Chloride 115 mmol/L (98-107); Estimated CRCL calculation 56 ml/min; Estimated Glomerular Filt Rate > 60; Glucose 137 mg/dL (65-110); Magnesium 1.9 mg/dL (1.6-2.3); Potassium 3.2 mmol/L (3.4-5.0); Sodium 142 mmol/L (137-145)
[2021-06-20 04:38] LABS: Basophils Percent Auto 0.1 % (0.2-1.2); Hematocrit 48.5 % (37.0-47.0); Hemoglobin 14.9 g/dL (12.0-15.0); Immature Granulocyte Absolute 0.05 K/mm3 (0.00-0.031); Immature Granulocyte Percent A 0.4 % (0-0.5); Lymphocytes Absolute Auto 0.87 K/mm3 (0.9-3.2); Lymphocytes Percent Auto 7.5 % (18.3-44.2); Mean Corpuscular HGB Conc 30.7 g/dl (32-36); Mean Corpuscular Hemoglobin 29.7 pg (26-34); Mean Corpuscular Volume 96.8 fl (80-100); Mean Platelet Volume 12.2 fl (7.4-10.4); Monocytes Absolute Auto 0.6 K/mm3 (0.1-0.6); Neutrophils Absolute Auto 10.1 K/mm3 (1.3-6.7); Platelet Count Result 152 k/mm3 (150-375); Red Blood Count 5.01 M/mm3 (4.2-5.4); Red Cell Distribution Width 13.9 % (11.5-14.5); White Blood Count 11.6 K/mm3 (4.5-10.0)
[2021-06-20 04:45] LABS: Troponin I < 0.012 ng/mL (0.000-0.034)
[2021-06-20 04:51] LABS: Anisocytosis 1+ (NORMAL); Hypochromasia 1+ (NORMAL); Ovalocytes 1+ (NORMAL); Platelet Estimate Adequate (Adequate); Schistocytes 1+ (NORMAL)
[2021-06-20 05:45] VITALS: BP 127/64; PULSE 84; RESP 16; TEMP 36.8; O2SAT 100
[2021-06-20] MEDS: SODIUM CHLORIDE 0.9% IV 1,000 ML 100 ML IV CONT ×2 (06:29→20:40)
--- NOTE | 2021-06-20 10:31 | PM.IMPN ---
Progress Note: A&P Assessment and Plan (1) Nausea and vomiting: Code(s): R11.2 - Nausea with vomiting, unspecified Status: Acute Assessment and Plan: Admit to regular medical floor Supportive care Monitor serum electrolytes, CBC, hemoglobin/hematocrit Monitor for bloody bowel movements,chest pain,SOB or dizziness/lightheadedness General surgery was consulted from the emergency department, appreciate assistance and recommendations Continue with IV fluids for hemodynamic stability and Serenity patient remains NPO Provide antiemetics p.r.n. Diet: NPO DVT Px: SCDs Avoid anti-coagulations for now, may resume Plavix at a later date. (2) Ileus: Code(s): K56.7 - Ileus, unspecified Status: Acute Assessment and Plan: CT of abdomen and pelvis shows ileus Replace electrolytes as needed Daily BMP (3) Fall: Code(s): W19.XXXA - Unspecified fall, initial encounter Status: Acute Assessment and Plan: For precautions PT OT to eval and treat No fractures (4) Seizure disorder: Code(s): G40.909 - Epilepsy, unspecified, not intractable, without status epilepticus Status: Acute Assessment and Plan: Patient is NPO with intractable nausea and vomiting unable to take her topiramate, we discussed when it would be appropriate to resume topiramate. Pending General surgery's recommendations Patient declined Keppra, she reports that Keppra creates additional hives Continue to monitor (5) Chronic renal insufficiency, stage II (mild): Code(s): N18.2 - Chronic kidney disease, stage 2 (mild) Status: Acute Assessment and Plan: Continue to monitor BUN and creatinine Currently at patient's baseline (6) Essential hypertension: Code(s): I10 - Essential (primary) hypertension Status: Acute Assessment and Plan: Continue to monitor (7) Diastolic heart failure: Code(s): I50.30 - Unspecified diastolic (congestive) heart failure Status: Acute Assessment and Plan: Patient appears euvolemic Daily intake and output (8) CVA (cerebral vascular accident): Code(s): I63.9 - Cerebral infarction, unspecified Status: Acute Assessment and Plan: Unchanged (9) ST segment changes on electrocardiogram: Code(s): R94.31 - Abnormal electrocardiogram [ECG] [EKG] Status: Acute Assessment and Plan: Echocardiogram pending. Will trend troponins initial troponin undetectable Continue to monitor Chest pain-free Subjective Date/time seen: 06/20/21 10:31 Patient is alert and oriented and very conversational this morning. Dr. Cisneros carrier with General surgery will come and evaluate the patient. Pending echocardiogram. Patient will remain NPO. Patient has requested some of her oral medications meds. Placed him in IV form. Patient reports that she is allergic to Keppra although she received a dose in the emergency department with reaction. Patient was unaware she took this medication in the emergency department. Patient has multiple list of allergies with vague symptoms. At times she appears malingering. Patient reports that she has had an ileus before in the past in 2009 where she was at [facility] for approximately 2 and half months. ??? Patient will remain NPO, continue medications to the IV and pending General surgery's recommendations with maintaining NPO status possible repeat imaging. Patient currently denies any nausea, vomiting upset stomach or constipation. She did report a diarrheal stool this morning and she is able to pass flatus. Review of Systems Review of Systems: All systems reviewed & are unremarkable except as noted in HPI and below Exam Narrative: Patient is laying in bed. Const: General: cooperative, comfortable, no acute distress, well developed, alert, awake, ill appearing chronically, tired appearing and other (Patient looks older than stated age.) Nutritio
[2021-06-20 14:00] VITALS: BP 123/69; PULSE 68; RESP 18; TEMP 36.5; O2SAT 99
[2021-06-20] MEDS: POTASSIUM CHLORIDE INJ 40 MEQ in SODIUM CHLORIDE 0.9% IV 500 ML 130 MEQ IVPB (14:44)
--- NOTE | 2021-06-20 15:22 | PM.CNGS ---
Assessment and Plan Assessment and plan (1) Ileus: Code(s): K56.7 - Ileus, unspecified Status: Acute Assessment and Plan: CT scan reviewed and discussed with the patient in detail. There is evidence of some dilated loops of jejunum with no transition point, likely an ileus. She presented with vomiting and diarrhea, and has continued to have diarrhea since admission. Her abdominal exam is benign. No clinical evidence of a small bowel obstruction. I think this is likely related to gastroenteritis. Would recommend to continue with medical management with IV fluids and antiemetics as needed. If her vomiting returns, may need to consider an NG tube, but this could be deferred for now. Will order a KUB tomorrow morning. Would plan to start a liquid diet once her nausea improves. No indication for surgical intervention at this time. (2) Nausea and vomiting: Code(s): R11.2 - Nausea with vomiting, unspecified Status: Acute Assessment and Plan: This seems likely related to gastroenteritis. Continue with medical management. (3) Diabetes: Code(s): E11.9 - Type 2 diabetes mellitus without complications Status: Acute (4) CHF (congestive heart failure): Code(s): I50.9 - Heart failure, unspecified Status: Acute (5) Chronic renal insufficiency, stage II (mild): Code(s): N18.2 - Chronic kidney disease, stage 2 (mild) Status: Acute (6) CVA (cerebral vascular accident): Code(s): I63.9 - Cerebral infarction, unspecified Status: Acute (7) Antiplatelet or antithrombotic long-term use: Code(s): Z79.02 - detention (current) use of antithrombotics/antiplatelets Status: Acute (8) Essential hypertension: Code(s): I10 - Essential (primary) hypertension Status: Acute Additional Plan I have discussed the patient's case and plan of care with Dr. Aranda. Thank you for allowing us to see the patient in consultation. History of Present Illness Consult details Consult date: 06/20/21 Requesting physician: Nissa Montero APRN Narrative: This is a 60-year-old female with multiple medical problems, who presented to the ER with complaints of nausea, vomiting, and diarrhea. She reports having a sudden onset of vomiting yesterday morning before eating any breakfast or taking her morning medication. She reports at least 10 episodes of vomiting yesterday. She reports an onset of diarrhea after a few episodes of vomiting as well. Shortly after she began having diarrhea, she developed generalized abdominal pain and bloating. Her symptoms persisted and prompted her to come into the ER for evaluation yesterday. CT scan of the abdomen and pelvis showed dilated loops of jejunum with no transition point, most consistent with an ileus. Her labs showed a WBC count of 14,800. She was admitted to the Hospitalist and made NPO. Our service is consulted for an ileus versus possible small bowel obstruction. She is seen on the medical floor now. She reports having 4 more episodes of diarrhea since admission, with two being this morning. She is still feeling very nauseous, but has not vomited since admission. She is no longer having any abdominal pain and feels her bloating has improved. She denies bloody or coffee-ground emesis, and denies blood in her stool. She denies fever or chills. She denies any recent known sick close contacts. She denies any recent antibiotic use. She has had a total abdominal hysterectomy at the age of 26, and also had an anterior approach spinal surgery. She denies a history of a small bowel obstruction in the past, but does report having an ileus following her spinal surgery in 2009. She was admitted to [facility] for 2 months following surgery with an ileus, renal failure, and other complications. She also reports recently having a fall down 14 stairs last Saturday. She deals with chronic pain all over but her pain in her hips and legs has gotten worse recently,
[2021-06-20 22:00] VITALS: BP 132/81; PULSE 67; RESP 16; TEMP 36.6; O2SAT 99
[2021-06-21] MEDS: ONDANSETRON INJ 4 MG/2 ML VIAL IV PUSH ×2 (03:37→12:45)
[2021-06-21 05:54] VITALS: BP 133/61; PULSE 65; RESP 16; TEMP 37.2; O2SAT 98
[2021-06-21 08:34] LABS: Lipase 491 U/L (23-300)
[2021-06-21] MEDS: SODIUM CHLORIDE 0.9% IV 1,000 ML 100 ML IV CONT (09:00)
--- NOTE | 2021-06-21 11:47 | P.PNGS_ITS ---
Progress Note: A&P Assessment and Plan (1) Nausea vomiting and diarrhea: Code(s): R11.2 - Nausea with vomiting, unspecified; R19.7 - Diarrhea, unspecified Status: Acute Assessment and Plan: * Bowels moving and Xray this AM shows no dilated bowel or signs of obstruction. Does not seem to be surgical in nature. Would recommend GI eval if symptoms are persisting. Will see again as needed but will sign off for now. (2) Ileus: Code(s): K56.7 - Ileus, unspecified Status: Acute (3) Diabetes: Code(s): E11.9 - Type 2 diabetes mellitus without complications Status: Acute Subjective Subjective Date/Time Seen: 06/21/21 11:47 Interval history: Patient continues to have N/V/D. Having abdominal pain. Exam GI: Inspection: non-distended GI Palp: Yes Soft to palpation, Yes Tenderness to palpation present (GI) (mild epigastric), No Guarding due to palpation present (GI) and No Rebound tenderness present Auscultation: normal bowel sounds Objective Data Vital Signs Vital Signs: Vital Signs - 24 hr 06/20/21 14:00 06/20/21 22:00 06/21/21 05:54 Temperature 36.5 C 36.6 C 37.2 C Pulse Rate 68 67 65 Respiratory Rate 18 16 16 Blood Pressure 123/69 132/81 133/61 Pulse Oximetry 99 99 98 Intake/Output Intake/Output: Intake & Output 06/18/21 06/19/21 06/20/21 06/21/21 23:59 23:59 23:59 23:59 Intake Total 2840 1000 Output Total 450 1000 Balance 2390 0 Meds/Results Medications: Active Medications Generic Name Dose Route Start Last Admin Trade Name Freq PRN Reason Stop Dose Admin Sodium Chloride 1,000 mls @ 100 mls/hr 06/19/21 18:20 06/21/21 09:00 Normal Saline Iv IV CONT 100 mls/hr .Q10H TRUONG Administration Acetaminophen 1,000 mg in 100 mls @ 400 mls/hr 06/20/21 16:06 06/20/21 22:54 Ofirmev 1,000 Mg Ivpb IVPB 06/21/21 16:05 Infused Q6H PRN Infusion Pain Rated 1-3 Ondansetron HCl 4 mg 06/19/21 16:52 06/21/21 03:37 Ondansetron Inj 4 Mg/2 Ml Vial IV PUSH 4 mg Q4H PRN Administration Nausea Perflutren Lipid Microsphere 0 ml 06/20/21 03:32 Perflutren Lipid Microspheres 1.5 Ml Vial Diluted To 10 Ml Total Volume IV PUSH ONCE PRN adequate visualization Protocol Radiology Results: ITS Impressions Head CT 06/19/21 14:38 IMPRESSION: No acute intracranial process. Abdomen/Pelvis CT 06/19/21 14:42 IMPRESSION: Multiple loops of dilated jejunum, likely representing ileus. Early obstruction is not excluded. Colonic findings as can be seen with diarrheal illness. Chest X-Ray 06/19/21 14:45 IMPRESSION: 1. No acute cardiopulmonary abnormality. Pelvis X-Ray 06/19/21 14:46 IMPRESSION: No pelvic fracture detected Abdomen X-Ray 06/21/21 06:44 IMPRESSION: 1. No dilated bowel loops identified. Labs Labs: Laboratory Results - last 24 hr 06/20/21 03:54 Lipase 491 H
[2021-06-21 14:43] VITALS: BP 127/59; PULSE 68; RESP 18; TEMP 38; O2SAT 98
[2021-06-21 14:48] LABS: Basophils Percent Auto 0.3 % (0.2-1.2); Hematocrit 36.1 % (37.0-47.0); Immature Granulocyte Absolute 0.04 K/mm3 (0.00-0.031); Immature Granulocyte Percent A 0.4 % (0-0.5); Lymphocytes Percent Auto 12.2 % (18.3-44.2); Mean Corpuscular HGB Conc 33.2 g/dl (32-36); Mean Corpuscular Hemoglobin 29.9 pg (26-34); Mean Corpuscular Volume 89.8 fl (80-100); Mean Platelet Volume 10.9 fl (7.4-10.4); Monocytes Absolute Auto 0.8 K/mm3 (0.1-0.6); Monocytes Percent Auto 8.3 % (2.6-8.5); Neutrophils Absolute Auto 7.8 K/mm3 (1.3-6.7); Neutrophils Percent Auto 78.8 % (45.5-73.1); Platelet Count Result 238 k/mm3 (150-375); Red Blood Count 4.02 M/mm3 (4.2-5.4); Red Cell Distribution Width 13.9 % (11.5-14.5); White Blood Count 9.9 K/mm3 (4.5-10.0)
[2021-06-21 15:05] LABS: Alanine Aminotransferase 43 U/L (6-35); Albumin Level 3.4 g/dL (3.5-5.1); Alkaline Phosphatase 60 U/L (38-126); Anion Gap 8 mmol/L (8-16); Aspartate Amino Transferase 43 U/L (14-36); Bilirubin,Total 0.7 mg/dL (0.2-1.3); Blood Urea Nitrogen 21 mg/dL (7-17); Calcium 8.3 mg/dL (8.4-10.2); Carbon Dioxide 16 mmol/L (22-30); Chloride 121 mmol/L (98-107); Estimated CRCL calculation 71 ml/min; Estimated Glomerular Filt Rate > 60; Glucose 99 mg/dL (65-110); Potassium 2.9 mmol/L (3.4-5.0); Sodium 145 mmol/L (137-145)
--- NOTE | 2021-06-21 19:20 | ECG_ITS ---
Measurements Intervals [place] Rate: 57 P: 58 [place]: 128 QRS: 64 QRSD: 92 T: 53 QT: 462 QTc: 453 Interpretive Statements SINUS BRADYCARDIA T WAVE ABNORMALITY IN ANTERIOR LEADS- CONSIDER ISCHEMIA BASELINE ARTIFACT- AVR, AVL, AVF ABNORMAL ECG Electronically Signed On 06-21-2021 19:41:37 CDT by Arnaldo Haywood D.O.
--- NOTE | 2021-06-21 19:35 | PM.IMPN ---
Progress Note: A&P Assessment and Plan (1) Nausea and vomiting: Code(s): R11.2 - Nausea with vomiting, unspecified Status: Acute Assessment and Plan: Patient continues to be unable to tolerate p.o. intake, to include ice chips. She continues to have frequent loose stewart-colored stools, which could be described as acholic. She continues to have epigastric pain, and nausea. Patient has not had a cholecystectomy. She denies history of alcohol intake, cigarette smoking, illicit substance abuse. She has not had a recent lipid panel. Patient's admission labs were significant for leukocytosis of 14.8, hemoglobin of 15.2, hematocrit 47.7, BUN 26, NT proBNP of 314 and AST of 41. Patient does have a history of lipase elevation as high as 900+, though she was unaware of this. To the best of her knowledge she was never formally diagnosed with pancreatitis at the time of this lipase elevation. Lipase not checked upon admission. -CT abdomen pelvis, showing multiple loops of mildly dilated small bowel in the left upper quadrant, with no transition point. Fluid filled colon. Scattered diverticuli without diverticulosis. Normal appendix -Surgery was consulted, and reviewed KUB this morning showing no dilated bowel or signs of obstruction, no indication for surgery,, and has signed off on this case. -Mildly worsening transaminitis -Lipase today mildly elevated at 491 Hepatitis panel Right upper quadrant ultrasound Direct, indirect, total bilirubin TREND lipase Stool cultures and fecal occult blood Lipid panel to check triglycerides IV fluids on hold for now. GI consult a.m. Pain control (2) Leukocytosis: Qualifiers: Leukocytosis type: unspecified Qualified Code(s): D72.829 - Elevated white blood cell count, unspecified Code(s): D72.829 - Elevated white blood cell count, unspecified Status: Acute Assessment and Plan: WBC 14 upon admission, normalized today. New low-grade fever today. UA was unremarkable. Blood cultures ordered today. Stool cultures Procalcitonin Lactic acid will be repeated Antibiotic therapy, pending patient's clinical status tomorrow. Monitor vital signs Continues to trend infectious markers He Tylenol for pain control and fever as needed. (3) Seizure disorder: Code(s): G40.909 - Epilepsy, unspecified, not intractable, without status epilepticus Status: Acute Assessment and Plan: Patient on home Topamax 600 mg p.o. b.i.d., currently unable to tolerate p.o. medications. She previously declined Keppra upon admission, however, after extensive discussion with the patient today she has agreed to IV Keppra. 500 mg IV Keppra q.12 hours Fall precautions, as patient does report frequent falls. Maintain optimal environment for patient, as she does say fluorescent lights, television have triggered seizures in the past. (4) Ileus: Code(s): K56.7 - Ileus, unspecified Status: Acute Assessment and Plan: This has resolved per KUB this morning. Patient is passing gas and having bowel movement. (5) Fall: Code(s): W19.XXXA - Unspecified fall, initial encounter Status: Acute Assessment and Plan: Patient was evaluated in the ER with pelvis, chest x-ray, head CT, and CT of the abdomen and pelvis without contrast, and was found to have no acute fractures, no acute intracranial process. (6) Diabetes: Code(s): E11.9 - Type 2 diabetes mellitus without complications Status: Acute Assessment and Plan: Patient appears to be controlled by diet alone, and is not on any home medications for her diabetes. Fasting glucose today was 137. Check A1c (7) Transaminitis: Code(s): R74.01 - Elevation of levels of liver transaminase levels Status: Acute Assessment and Plan: Plan as above. (8) Elevated lipase: Code(s): R74.8 - Abnormal levels of ot
[2021-06-21 20:09] LABS: Alanine Aminotransferase 50 U/L (6-35); Albumin Level 3.6 g/dL (3.5-5.1); Alkaline Phosphatase 65 U/L (38-126); Anion Gap 12 mmol/L (8-16); Aspartate Amino Transferase 48 U/L (14-36); Bilirubin Indirect 0.6 mg/dL (0-1.1); Bilirubin,Total 0.6 mg/dL (0.2-1.3); Blood Urea Nitrogen 20 mg/dL (7-17); Calcium 8.7 mg/dL (8.4-10.2); Carbon Dioxide 16 mmol/L (22-30); Chloride 119 mmol/L (98-107); Cholesterol 123 mg/dL (0-200); Estimated CRCL calculation 62 ml/min; Estimated Glomerular Filt Rate > 60; Glucose 99 mg/dL (65-110); HDL Direct 45 mg/dL; Potassium 2.9 mmol/L (3.4-5.0); Sodium 147 mmol/L (137-145); Triglycerides 75 mg/dL (<150)
[2021-06-21 20:20] LABS: LDL Cholesterol Direct 48 mg/dL
[2021-06-21 20:41] LABS: Procalcitonin 0.1 ng/mL
[2021-06-21 20:58] LABS: Lactic Acid Reflex 0.8 mmol/L (0.7-2.0)
[2021-06-21] MEDS: levETIRAcetam 500MG/NACL 100ML 500 MG/100 ML BAG 400 MG IVPB (21:27)
[2021-06-21] MEDS: KCL 40 MEQ/0.9% SOD CHL 1,000 ML 100 ML IV CONT (21:52)
[2021-06-21 22:00] VITALS: BP 145/64; PULSE 52; RESP 16; TEMP 36.5; O2SAT 98
[2021-06-21 22:36] LABS: Hepatitis B Surface Antigen Negative (Negative)
[2021-06-21 22:42] LABS: HAV RESULT Negative (Negative); Hepatitis B Core IgM Result Negative (Negative)
[2021-06-21 22:54] LABS: Hepatitis C Virus Antibody Negative (Negative)
[2021-06-22] VITALS (9 sets, daily range): BP systolic 134–147; BP diastolic 59–72; PULSE 46–59; RESP 16–18; TEMP 36.4–37.9; O2SAT 97–99
[2021-06-22] MEDS: ONDANSETRON INJ 4 MG/2 ML VIAL IV PUSH ×2 (01:00→15:45)
[2021-06-22 04:35] LABS: Immunochemical Fecal Occult Bl Negative (N)
[2021-06-22 04:36] LABS: IFOB Positive Control Positive
[2021-06-22 07:05] LABS: Basophils Absolute Auto 0.1 K/mm3 (0.0-0.1); Basophils Percent Auto 0.5 % (0.2-1.2); Eosinophils Percent Auto 0.1 % (0-4.4); Hematocrit 36.9 % (37.0-47.0); Hemoglobin 11.6 g/dL (12.0-15.0); Immature Granulocyte Absolute 0.04 K/mm3 (0.00-0.031); Immature Granulocyte Percent A 0.4 % (0-0.5); Lymphocytes Absolute Auto 1.36 K/mm3 (0.9-3.2); Lymphocytes Percent Auto 12.7 % (18.3-44.2); Mean Corpuscular HGB Conc 31.4 g/dl (32-36); Mean Corpuscular Hemoglobin 29.2 pg (26-34); Mean Corpuscular Volume 92.9 fl (80-100); Mean Platelet Volume 11.5 fl (7.4-10.4); Monocytes Absolute Auto 0.9 K/mm3 (0.1-0.6); Monocytes Percent Auto 8.1 % (2.6-8.5); Neutrophils Absolute Auto 8.4 K/mm3 (1.3-6.7); Neutrophils Percent Auto 78.2 % (45.5-73.1); Platelet Count Result 222 k/mm3 (150-375); Red Blood Count 3.97 M/mm3 (4.2-5.4); Red Cell Distribution Width 13.9 % (11.5-14.5); White Blood Count 10.7 K/mm3 (4.5-10.0)
[2021-06-22 07:20] LABS: Alanine Aminotransferase 48 U/L (6-35); Albumin Level 3.2 g/dL (3.5-5.1); Alkaline Phosphatase 57 U/L (38-126); Anion Gap 8 mmol/L (8-16); Aspartate Amino Transferase 46 U/L (14-36); Bilirubin,Total 0.7 mg/dL (0.2-1.3); Blood Urea Nitrogen 19 mg/dL (7-17); Calcium 8.2 mg/dL (8.4-10.2); Carbon Dioxide 19 mmol/L (22-30); Chloride 119 mmol/L (98-107); Estimated CRCL calculation 71 ml/min; Estimated Glomerular Filt Rate > 60; Glucose 88 mg/dL (65-110); Sodium 146 mmol/L (137-145)
--- NOTE | 2021-06-22 08:20 | PM.IMPN ---
Progress Note: A&P Assessment and Plan (1) Chest pain: Code(s): R07.9 - Chest pain, unspecified Status: Acute Assessment and Plan: Patient reported to nursing staff last night that she was having significant chest pain that felt like prior heart attack. Chest pain workup initiated. I suspect this is due to her recent lipase elevation at this time. EKG shows sinus bradycardia borderline T-wave abnormality in the anterior leads, which is her fairly consistent with previous to EKGs. CXR shows no cardiopulmonary abnormality Serial troponin-1st troponin normal will continue to trend this. BNP elevated today > 2,000 patient is clinically euvolemic. (2) Nausea and vomiting: Code(s): R11.2 - Nausea with vomiting, unspecified Status: Acute Assessment and Plan: Lipase 988 today, increased from 491. Patient's admission labs were significant for leukocytosis of 14.8, hemoglobin of 15.2, hematocrit 47.7, BUN 26, NT proBNP of 314 and AST of 41. Patient does have a history of lipase elevation as high as 900+. To the best of her knowledge she was never formally diagnosed with pancreatitis at the time of this lipase elevation. Lipase not checked upon admission. -Surgery was consulted, and reviewed KUB this morning showing no dilated bowel or signs of obstruction, no indication for surgery,, and has signed off on this case. - GI has been consulted and does not feel this is pancreatitis, likely decreased renal function. Will continue to treat conservatively. All other recommendations have been implemented at this time. -Stable transaminitis -Hepatitis panel negative -Direct, indirect, total bilirubin normal -Fecal occult blood negative -Triglycerides 75 -IV fluids D5W 1/2NS Right upper quadrant ultrasound shows gallbladder wall thickening, hepatic steatosis. CBD 7 mm. No gallstones or pericholecystic fluid. Stool cultures pending Pain control (3) Elevated lipase: Code(s): R74.8 - Abnormal levels of other serum enzymes Status: Acute Assessment and Plan: Plan as above. (4) Leukocytosis: Qualifiers: Leukocytosis type: unspecified Qualified Code(s): D72.829 - Elevated white blood cell count, unspecified Code(s): D72.829 - Elevated white blood cell count, unspecified Status: Acute Assessment and Plan: WBC 10.7 (9.9), patient mildly hypertensive Continues to have low-grade fever today. UA was unremarkable. procalcitonin normal Lactic acid normal Blood cultures pending Stool cultures pending Will initate empiric Zosyn therapy at this time. Continue to monitor vital signs Tylenol for pain control and fever as needed. (5) Electrolyte abnormality: Code(s): E87.8 - Other disorders of electrolyte and fluid balance, not elsewhere classified Status: Acute Assessment and Plan: Potassium 3.0 (2.9) 06/21 EKG shows T-wave abnormalities in anterior leads sinus bradycardia. Inverted T-waves in leads V1 through V3. 20 mEq IV infused over 2 hrs ordered today, patient IV was blown and was unable to tolerate. Started 40meq in 1L D5W/ 1/2 NS at 100ml/Hr. Patient placed on telemetry Repeat CMP in the AM. Sodium 145 Pt with poor PO intake. Will continue to monitor. (6) Seizure disorder: Code(s): G40.909 - Epilepsy, unspecified, not intractable, without status epilepticus Status: Acute Assessment and Plan: Patient on home Topamax 600 mg p.o. b.i.d., currently unable to tolerate p.o. medications. She previously declined Keppra upon admission, however, after extensive discussion with the patient today she has agreed to IV Keppra. Patient reported chest pain after Keppra infusion last night, preliminary CP workup negative/ 500 mg IV Keppra q.12 hours Fall precautions, as patient does report frequent falls. Maintain optimal environment for patient, as she does say fluorescent lights, te
[2021-06-22 08:26] LABS: Lipase 998 U/L (23-300); Magnesium 1.9 mg/dL (1.6-2.3)
--- NOTE | 2021-06-22 10:55 | ECG_ITS ---
Measurements Intervals [place] Rate: 49 P: 48 MN: 125 QRS: 48 QRSD: 99 T: 47 QT: 485 QTc: 442 Interpretive Statements SINUS BRADYCARDIA BORDERLINE T WAVE ABNORMALITY- ANTERIOR LEADS BASELINE WANDER- V4 ABNORMAL ECG Electronically Signed On 06-22-2021 11:42:46 CDT by Arnaldo Haywood D.O.
[2021-06-22] MEDS: DEXTROSE 5% 1,000 ML 1,000 ML 100 ML IV CONT (11:14)
[2021-06-22 11:55] LABS: NT Pro B Type Natriuretic Pept 2220 pg/mL (5-100); Troponin I 0.014 ng/mL (0.000-0.034)
[2021-06-22] MEDS: KCL 20 MEQ/SW 100 ML 100 ML 50 MEQ IVPB (12:47)
[2021-06-22 14:57] LABS: Troponin I 0.017 ng/mL (0.000-0.034)
[2021-06-22 15:23] LABS: Alanine Aminotransferase 53 U/L (6-35); Albumin Level 3.6 g/dL (3.5-5.1); Alkaline Phosphatase 61 U/L (38-126); Anion Gap 11 mmol/L (8-16); Aspartate Amino Transferase 51 U/L (14-36); Bilirubin,Total 0.9 mg/dL (0.2-1.3); Blood Urea Nitrogen 19 mg/dL (7-17); Calcium 8.5 mg/dL (8.4-10.2); Carbon Dioxide 18 mmol/L (22-30); Chloride 116 mmol/L (98-107); Estimated CRCL calculation 62 ml/min; Estimated Glomerular Filt Rate > 60; Glucose 102 mg/dL (65-110); Sodium 145 mmol/L (137-145)
--- NOTE | 2021-06-22 15:25 | WPDGICN ---
Assessment and Plan Assessment and plan (1) Elevated lipase: Code(s): R74.8 - Abnormal levels of other serum enzymes Status: Acute Assessment and Plan: Patient has elevated lipase but probably does not have pancreatitis. No evidence of pancreatitis by image scanning. She has no abdominal tenderness nor clinical findings. Lipase has been elevated on previous admissions the hospital. I suspect most likely this is related to decreased renal function. Patient reports having had several episodes of ATN in the past. No specific workup indicated at this time. (2) Transaminitis: Code(s): R74.01 - Elevation of levels of liver transaminase levels Status: Acute Assessment and Plan: Mild elevation of AST and ALT are identified. Currently 51 and 53 respectively. With a normal range typically 235. This is nonspecific likely related to inflammation from her fall. Cannot exclude hepatitis would recommend checking viral serology in following this conservatively at present. (3) Fall: Code(s): W19.XXXA - Unspecified fall, initial encounter Status: Acute (4) Nausea vomiting and diarrhea: Code(s): R11.2 - Nausea with vomiting, unspecified; R19.7 - Diarrhea, unspecified Status: Acute Assessment and Plan: Patient reports nausea vomiting and diarrhea that has occurred since her fall. Etiology of this remains unclear. Recommend initial conservative management. Stool cultures to exclude infection or encourage. Cannot exclude this may be related to medications . etc. GI Consult Note Consult date/time: 06/22/21 15:25 HPI: Sierra Rod is a 60 year old female I am asked to see because of elevated lipase. Patient reports that she recently has had hip pain and weakness. Apparently this caused her to fall down the steps at home resulting in several bruises on her left side in arm. Patient subsequently was noted to have elevated lipase with mild elevation of serum transaminases. She denies any prior history of liver disease. She has had several episodes of ATN in the past. Since admission hospital she has had some diarrhea stool and intermittent vomiting. Her family history is noncontributory. She denies any gallbladder or liver disease in past. Review of Systems Review of Systems: All systems reviewed & are unremarkable except as noted in HPI and below PMFSH Past Medical History Medical History CHF (congestive heart failure) Chronic renal insufficiency, stage II (mild) CVA (cerebral vascular accident) Diabetes Hyperlipidemia Hypertension NSTEMI (non-ST elevated myocardial infarction) Paresthesia Seizure disorder Surgical History Surgical History History of cardiac catheterization Presented with chest pain and possible NSTEMI in 2019, underwent left heart catheterization and findings showed no significant coronary artery disease or stenosis. History of spinal surgery Reportedly a total of 8 surgeries with one being an anterior approach. History of total abdominal hysterectomy and bilateral salpingo-oophorectomy Social History Social History Smoking status: Never smoker Second hand tobacco smoke exposure: No Alcohol intake: never Substance use: never Substance use type: does not use Living arrangements: alone Additional occupation/education comments: Disability Gender identity (if verbalized by the patient): Female Spiritual care concerns: No Meds Home Medications and Allergies Home Medications Medication Instructions Recorded Confirmed Type furosemide 20 mg PO PRN 11/06/19 06/19/21 History metoprolol tartrate 25 mg tablet 25 mg PO BID tablet 02/25/20 06/19/21 History topiramate 200 mg tablet 600 mg PO BID tablet 02/25/20 06/19/21 History morphine 30 mg capsul
[2021-06-22] MEDS: levETIRAcetam 500MG/NACL 100ML 500 MG/100 ML BAG 400 MG IVPB (15:42)
[2021-06-22] MEDS: KCL 40 MEQ/D5 1/2NS 1,000 ML 100 ML IV CONT (17:21)
[2021-06-22 17:26] LABS: Troponin I 0.014 ng/mL (0.000-0.034)
[2021-06-22] MEDS: PANTOPRAZOLE SODIUM IV 40 MG VIAL IV PUSH (21:31)
[2021-06-23 00:22] LABS: Mucus Urine Rare /lpf; RBC Urine 0-2 /hpf (0-2); WBC Urine 0-3 /hpf
[2021-06-23 00:25] LABS: Add Urine Microscopic? YES; Appearance Urine Clear (Clear); Bilirubin Urine Negative (Negative); Blood Urine Negative (Negative); Color Urine Yellow (Yellow); Glucose Urine UA Negative (Negative); Ketones Urine Trace mg/dL (Negative); Leukocyte Esterase Ur Negative LEU/UL (Negative); Nitrate Urine Negative (Negative); Protein Urine Negative (Negative); Specific Grav Ur 1.015 (1.001-1.035); Urobilinogen Urine 0.2 mg/dL (<2.0)
[2021-06-23] MEDS: levETIRAcetam 500MG/NACL 100ML 500 MG/100 ML BAG 400 MG IVPB ×2 (02:34→16:08)
[2021-06-23 04:00] VITALS: PULSE 50
[2021-06-23 06:00] VITALS: BP 148/68; PULSE 53; RESP 18; TEMP 37.1; O2SAT 97
[2021-06-23] MEDS: KCL 40 MEQ/D5 1/2NS 1,000 ML 100 ML IV CONT (06:03)
[2021-06-23 06:33] LABS: Basophils Percent Auto 0.4 % (0.2-1.2); Eosinophils Absolute Auto 0.1 K/mm3 (0-0.3); Eosinophils Percent Auto 0.5 % (0-4.4); Hematocrit 36.4 % (37.0-47.0); Hemoglobin 11.7 g/dL (12.0-15.0); Immature Granulocyte Absolute 0.05 K/mm3 (0.00-0.031); Immature Granulocyte Percent A 0.5 % (0-0.5); Lymphocytes Absolute Auto 1.53 K/mm3 (0.9-3.2); Lymphocytes Percent Auto 14.5 % (18.3-44.2); Mean Corpuscular HGB Conc 32.1 g/dl (32-36); Mean Corpuscular Hemoglobin 29.8 pg (26-34); Mean Corpuscular Volume 92.6 fl (80-100); Mean Platelet Volume 11.6 fl (7.4-10.4); Monocytes Absolute Auto 0.8 K/mm3 (0.1-0.6); Monocytes Percent Auto 7.9 % (2.6-8.5); Neutrophils Absolute Auto 8.1 K/mm3 (1.3-6.7); Neutrophils Percent Auto 76.2 % (45.5-73.1); Platelet Count Result 208 k/mm3 (150-375); Red Blood Count 3.93 M/mm3 (4.2-5.4); Red Cell Distribution Width 13.6 % (11.5-14.5); White Blood Count 10.6 K/mm3 (4.5-10.0)
[2021-06-23 06:41] LABS: Lipase 865 U/L (23-300)
[2021-06-23 07:08] LABS: Alanine Aminotransferase 48 U/L (6-35); Albumin Level 3.1 g/dL (3.5-5.1); Alkaline Phosphatase 49 U/L (38-126); Anion Gap 6 mmol/L (8-16); Aspartate Amino Transferase 42 U/L (14-36); Bilirubin,Total 0.8 mg/dL (0.2-1.3); Blood Urea Nitrogen 14 mg/dL (7-17); Calcium 8.1 mg/dL (8.4-10.2); Carbon Dioxide 21 mmol/L (22-30); Chloride 116 mmol/L (98-107); Estimated CRCL calculation 62 ml/min; Estimated Glomerular Filt Rate > 60; Glucose 139 mg/dL (65-110); Potassium 3.2 mmol/L (3.4-5.0); Sodium 143 mmol/L (137-145)
[2021-06-23 07:39] LABS: Magnesium 1.9 mg/dL (1.6-2.3)
[2021-06-23 08:00] VITALS: PULSE 47
[2021-06-23 08:02] LABS: Glucose Point of Care 144 mg/dl (65-105)
[2021-06-23] MEDS: PANTOPRAZOLE SODIUM IV 40 MG VIAL IV PUSH ×2 (09:38→20:51)
--- NOTE | 2021-06-23 09:56 | PM.IMPN ---
Progress Note: A&P Assessment and Plan (1) Chest pain: Code(s): R07.9 - Chest pain, unspecified Status: Acute Assessment and Plan: Pt chest pain free today. Patient reported to nursing staff last night that she was having significant chest pain that felt like prior heart attack. Chest pain workup initiated. I suspect this is due to her recent lipase elevation at this time. EKG shows sinus bradycardia borderline T-wave abnormality in the anterior leads, which is her fairly consistent with previous to EKGs. CXR shows no cardiopulmonary abnormality Serial troponin unremarkable. (2) Nausea and vomiting: Code(s): R11.2 - Nausea with vomiting, unspecified Status: Acute Assessment and Plan: Lipase 865 (improved) Patient does have a history of lipase elevation as high as 900+. -Surgery was consulted, and reviewed KUB this morning showing no dilated bowel or signs of obstruction, no indication for surgery,, and has signed off on this case. - GI has been consulted and does not feel this is pancreatitis, likely decreased renal function. Will continue to treat conservatively. All other recommendations have been implemented at this time. -Stable transaminitis -Hepatitis panel negative -Direct, indirect, total bilirubin normal -Fecal occult blood negative -Triglycerides 75 -IV fluids D5W 1/2NS Right upper quadrant ultrasound shows gallbladder wall thickening, hepatic steatosis. CBD 7 mm. No gallstones or pericholecystic fluid. Stool cultures pending Home morphine dose converted to IV dosing by pharmacy. Will utilize this for pain control. (3) Elevated lipase: Code(s): R74.8 - Abnormal levels of other serum enzymes Status: Acute Assessment and Plan: Plan as above. (4) Leukocytosis: Qualifiers: Leukocytosis type: unspecified Qualified Code(s): D72.829 - Elevated white blood cell count, unspecified Code(s): D72.829 - Elevated white blood cell count, unspecified Status: Acute Assessment and Plan: WBC 10.6 (10.7) (9.9), patient mildly hypertensive Continues to have low-grade fever today. UA was unremarkable. procalcitonin normal Lactic acid normal Blood cultures show no growth. Stool cultures pending continue Zosyn therapy at this time. Continue to monitor vital signs (5) Electrolyte abnormality: Code(s): E87.8 - Other disorders of electrolyte and fluid balance, not elsewhere classified Status: Acute Assessment and Plan: Potassium 3.2 (3.0) (2.9) Continue 40meq in 1L D5W/ 1/2 NS at 100ml/Hr. Patient placed on telemetry Repeat CMP at noon. Sodium 143 Will continue to monitor. (6) Seizure disorder: Code(s): G40.909 - Epilepsy, unspecified, not intractable, without status epilepticus Status: Acute Assessment and Plan: Patient on home Topamax 600 mg p.o. b.i.d., currently unable to tolerate p.o. medications. She previously declined Keppra upon admission, however, after extensive discussion with the patient today she has agreed to IV Keppra. Patient reported chest pain after Keppra infusion last night, CP workup negative. 500 mg IV Keppra q.12 hours Fall precautions, as patient does report frequent falls. Maintain optimal environment for patient, as she does say fluorescent lights, television have triggered seizures in the past. (7) Ileus: Code(s): K56.7 - Ileus, unspecified Status: Acute Assessment and Plan: This has resolved per KUB this morning. Patient is passing gas and having bowel movement. (8) Fall: Code(s): W19.XXXA - Unspecified fall, initial encounter Status: Acute Assessment and Plan: Patient was evaluated in the ER with pelvis, chest x-ray, head CT, and CT of the abdomen and pelvis without contrast, and was found to have no acute fractures, no acute intracranial process. (9) Transamin
[2021-06-23 11:52] LABS: Glucose Point of Care 136 mg/dl (65-105)
--- NOTE | 2021-06-23 12:56 | WPDGIPROGNO ---
Progress Note: A&P Assessment and Plan (1) Elevated lipase: Code(s): R74.8 - Abnormal levels of other serum enzymes Status: Acute Assessment and Plan: Elevated lipase is nonspecific. Likely related to decreased renal function. Observation at this time is suggested. (2) Transaminitis: Code(s): R74.01 - Elevation of levels of liver transaminase levels Status: Acute Assessment and Plan: Mild elevation of transaminases noted. This is chronic. Suspect related to DOWELL. (3) Nausea vomiting and diarrhea: Code(s): R11.2 - Nausea with vomiting, unspecified; R19.7 - Diarrhea, unspecified Status: Acute Assessment and Plan: Nausea vomiting have resolved. Patient has loose stools that her improving. Stool cultures pending. Would recommend bulk agents and fiber at this point. (4) CHF (congestive heart failure): Code(s): I50.9 - Heart failure, unspecified Status: Acute (5) Seizure disorder: Code(s): G40.909 - Epilepsy, unspecified, not intractable, without status epilepticus Status: Acute (6) Frequent falls: Code(s): R29.6 - Repeated falls Status: Acute Subjective Date/time seen: 06/23/21 12:56 Patient denies significant abdominal pain. She reports diarrhea has lessened to some degree. Review of Systems Review of Systems: All systems reviewed & are unremarkable except as noted in HPI and below Exam Narrative: Physical exam patient is comfortable at rest. Vital signs stable. HEENT exam reveals no icterus. Lungs are clear. Heart without murmur. Abdomen bowel sounds present soft nontender with no organomegaly. Objective Data Vital Signs Vital Signs: Vital Signs - 24 hr 06/22/21 14:00 06/22/21 16:00 06/22/21 20:00 Temperature 97.5 F L Pulse Rate 50 L 48 L 46 L Respiratory Rate 18 Blood Pressure 134/72 Pulse Oximetry 98 06/22/21 22:00 06/23/21 04:00 06/23/21 06:00 Temperature 97.7 F 98.7 F Pulse Rate 47 L 50 L 53 L Respiratory Rate 18 18 Blood Pressure 147/69 H 148/68 H Pulse Oximetry 99 97 Intake/Output Intake/Output: Intake & Output 06/20/21 06/21/21 06/22/21 06/23/21 23:59 23:59 23:59 23:59 Intake Total 2840 2100 863 1150 Output Total 450 1301 1900 900 Balance 2390 799 -1037 250 Meds/Results Medications: Active Medications Generic Name Dose Route Start Last Admin Trade Name Freq PRN Reason Stop Dose Admin Piperacillin/Tazobactam/Dextrose 3.375 gm in 50 mls @ 100 mls/hr 06/22/21 09:00 06/23/21 09:38 Zosyn 3.375 Gm/D5w 50ml Pm IVPB 100 mls/hr Q6H TRUONG Administration Levetiracetam 500 mg in 100 mls @ 400 mls/hr 06/23/21 03:00 06/23/21 02:49 Keppra Iv IVPB Infused Q12H TRUONG Infusion Potassium Chloride/Dextrose/Sod Cl 1,000 mls @ 100 mls/hr 06/22/21 17:00 06/23/21 06:03 Kcl 40 Meq/D5 1/2ns IV CONT 100 mls/hr .Q10H TRUONG Administration Morphine Sulfate 5 mg 06/23/21 10:25 Morphine Sulfate Inj (*Crx) 10 Mg/Ml Amp IV PUSH TID PRN Pain Rated 7-10 Morphine Sulfate 2 mg 06/23/21 10:25 Morphine Sulfate (*Crx) 2 Mg/Ml Inj IV PUSH ONCE PRN Breakthrough Pain Ondansetron HCl 4 mg 06/19/21 16:52 06/22/21 15:45 Ondansetron Inj 4 Mg/2 Ml Vial IV PUSH 4 mg Q4H PRN Administration Nausea Pantoprazole Sodium 40 mg 06/22/21 21:00 06/23/21 09:38 Pantoprazole Sodium Iv 40 Mg Vial IV PUSH 40 mg Q12HR TRUONG Administration Perflutren Lipid Microsphere 0 ml 06/20/21 03:32 Perflutren Lipid Microspheres 1.5 Ml Vial Diluted To 10 Ml Total Volume IV PUSH ONCE PRN adequate visualization Protocol Perflutren Lipid Microsphere 0 ml 06/21/21 19:49 Perflutren Lipid Microspheres 1.5 Ml Vial Diluted To 10 Ml Total Volume IV PUSH ONCE PRN adequate visualization Protocol Radiology Results: ITS Impressions Head CT 06/19/21 14:38 IMPRESSION: No acute intracranial process.
[2021-06-23 13:35] LABS: Alanine Aminotransferase 49 U/L (6-35); Albumin Level 3.3 g/dL (3.5-5.1); Alkaline Phosphatase 55 U/L (38-126); Anion Gap 7 mmol/L (8-16); Aspartate Amino Transferase 40 U/L (14-36); Bilirubin,Total 1.1 mg/dL (0.2-1.3); Blood Urea Nitrogen 11 mg/dL (7-17); Calcium 8.3 mg/dL (8.4-10.2); Carbon Dioxide 22 mmol/L (22-30); Chloride 115 mmol/L (98-107); Estimated CRCL calculation 62 ml/min; Estimated Glomerular Filt Rate > 60; Glucose 149 mg/dL (65-110); Sodium 144 mmol/L (137-145)
[2021-06-23 13:51] VITALS: BMI 36.0
[2021-06-23 14:00] VITALS: BP 134/67; PULSE 59; RESP 18; TEMP 35.9; O2SAT 99
[2021-06-23 16:34] LABS: Glucose Point of Care 155 mg/dl (65-105)
[2021-06-23] MEDS: KCL 40 MEQ/D5 1/2NS 1,000 ML 75 ML IV CONT (18:17)
[2021-06-23] MEDS: MORPHINE SULFATE (*CRX) 2 MG/ML INJ IV PUSH (18:18)
[2021-06-23 21:33] LABS: Influenza Control Positive
[2021-06-23 22:00] VITALS: BP 141/94; PULSE 51; RESP 18; TEMP 36.8; O2SAT 99
[2021-06-23 22:10] LABS: Erythropoietin (EPO) 8.6 mIU/mL (2.6-18.5)
[2021-06-24] MEDS: MORPHINE SULFATE INJ (*CRX) 10 MG/ML AMP 5 MG IV PUSH ×2 (01:36→09:34)
[2021-06-24] MEDS: ONDANSETRON INJ 4 MG/2 ML VIAL IV PUSH ×3 (01:49→22:23)
[2021-06-24] MEDS: levETIRAcetam 500MG/NACL 100ML 500 MG/100 ML BAG 400 MG IVPB (03:35)
[2021-06-24 05:38] VITALS: BP 111/53; PULSE 58; RESP 18; TEMP 36.8; O2SAT 100
[2021-06-24 08:00] VITALS: PULSE 58; RESP 18; O2SAT 100
[2021-06-24] MEDS: KCL 40 MEQ/D5 1/2NS 1,000 ML 75 ML IV CONT (09:33)
[2021-06-24] MEDS: PANTOPRAZOLE SODIUM IV 40 MG VIAL IV PUSH ×2 (09:45→20:38)
[2021-06-24 10:16] LABS: Alanine Aminotransferase 55 U/L (6-35); Alkaline Phosphatase 47 U/L (38-126); Anion Gap 7 mmol/L (8-16); Aspartate Amino Transferase 42 U/L (14-36); Bilirubin,Total 0.9 mg/dL (0.2-1.3); Blood Urea Nitrogen 7 mg/dL (7-17); Calcium 8.2 mg/dL (8.4-10.2); Carbon Dioxide 22 mmol/L (22-30); Chloride 112 mmol/L (98-107); Estimated CRCL calculation 71 ml/min; Estimated Glomerular Filt Rate > 60; Glucose 101 mg/dL (65-110); Lipase 677 U/L (23-300); Magnesium 1.8 mg/dL (1.6-2.3); NT Pro B Type Natriuretic Pept 1260 pg/mL (5-100); Potassium 3.2 mmol/L (3.4-5.0); Sodium 141 mmol/L (137-145)
--- NOTE | 2021-06-24 10:40 | PM.IMPN ---
Progress Note: A&P Assessment and Plan (1) Nausea and vomiting: Code(s): R11.2 - Nausea with vomiting, unspecified Status: Acute Assessment and Plan: Lipase 677 (improved). At this time, patient is tolerating p.o. intake. Patient does have a history of lipase elevation as high as 900+ Surgery was consulted, no indication for surgery, and has signed off. GI has been consulted and advises stool bulking agents and fiber. Stable transaminitis, likely related to DOWELL. Hepatitis panel negative. Direct, indirect, total bilirubin normal. Fecal occult blood negative. Triglycerides 75. Right upper quadrant ultrasound shows gallbladder wall thickening, hepatic steatosis. CBD 7 mm. No gallstones or pericholecystic fluid. Suspect this is likely viral in nature. Diet will be advanced today, and she will be restarted on her p.o. medications. Start psyllium fiber today per GI (2) Chest pain: Code(s): R07.9 - Chest pain, unspecified Status: Acute Assessment and Plan: Pt chest pain free today. Chest pain workup was negative for cardiac causes. I suspect this is due to her recent lipase elevation. EKG showed sinus bradycardia borderline T-wave abnormality in the anterior leads, which is her fairly consistent with previous to EKGs. CXR shows no cardiopulmonary abnormality. Serial troponin unremarkable. Continue to monitor (3) Elevated lipase: Code(s): R74.8 - Abnormal levels of other serum enzymes Status: Acute Assessment and Plan: Plan as above. (4) Leukocytosis: Qualifiers: Leukocytosis type: unspecified Qualified Code(s): D72.829 - Elevated white blood cell count, unspecified Code(s): D72.829 - Elevated white blood cell count, unspecified Status: Acute Assessment and Plan: WBC has normalized, patient is afebrile, no bacterial source of infection identified. UA was unremarkable. procalcitonin normal Lactic acid normal Blood cultures show no growth. Stool cultures negative D/C antibiotic therapy at this time. Continue to monitor vital signs (5) Electrolyte abnormality: Code(s): E87.8 - Other disorders of electrolyte and fluid balance, not elsewhere classified Status: Acute Assessment and Plan: Potassium 3.2 (3.0) (2.9) Patient will be restarted on p.o. potassium today Continue to monitor Sodium 141 Will continue to monitor. (6) Seizure disorder: Code(s): G40.909 - Epilepsy, unspecified, not intractable, without status epilepticus Status: Acute Assessment and Plan: Patient on home Topamax 600 mg p.o. b.i.d., but was unable to tolerate p.o. medications and was transitioned to IV Keppra. Patient is having p.o. intake now and we will place her back on her home dose of Topamax. Fall precautions, as patient does report frequent falls. Maintain optimal environment for patient, as she does say fluorescent lights, television have triggered seizures in the past. (7) Ileus: Code(s): K56.7 - Ileus, unspecified Status: Acute Assessment and Plan: This has resolved. Patient is passing gas and having bowel movement. Continue to monitor (8) Fall: Code(s): W19.XXXA - Unspecified fall, initial encounter Status: Acute Assessment and Plan: Patient was evaluated in the ER with pelvis, chest x-ray, head CT, and CT of the abdomen and pelvis without contrast, and was found to have no acute fractures, no acute intracranial process. (9) Transaminitis: Code(s): R74.01 - Elevation of levels of liver transaminase levels Status: Acute Assessment and Plan: Plan as above. (10) CHF (congestive heart failure): Code(s): I50.9 - Heart failure, unspecified Status: Acute Assessment and Plan: BNP 1260 (improved) today. Patient reports history of CHF, though she does not appear to be having any acute exacerb
[2021-06-24] MEDS: MAGNESIUM SULF 2 GM/WATER 50ML 2 GM/50 ML BAG IVPB (11:50)
[2021-06-24] MEDS: PSYLLIUM POWDER PACKET 1 PACKET PO (11:51)
[2021-06-24 13:25] LABS: Basophils Absolute Auto 0.1 K/mm3 (0.0-0.1); Basophils Percent Auto 0.6 % (0.2-1.2); Eosinophils Absolute Auto 0.3 K/mm3 (0-0.3); Eosinophils Percent Auto 3.6 % (0-4.4); Hematocrit 37.8 % (37.0-47.0); Hemoglobin 12.2 g/dL (12.0-15.0); Immature Granulocyte Absolute 0.09 K/mm3 (0.00-0.031); Lymphocytes Absolute Auto 1.91 K/mm3 (0.9-3.2); Lymphocytes Percent Auto 20.2 % (18.3-44.2); Mean Corpuscular HGB Conc 32.3 g/dl (32-36); Mean Corpuscular Hemoglobin 29.5 pg (26-34); Mean Corpuscular Volume 91.5 fl (80-100); Mean Platelet Volume 10.9 fl (7.4-10.4); Monocytes Absolute Auto 0.5 K/mm3 (0.1-0.6); Monocytes Percent Auto 5.6 % (2.6-8.5); Neutrophils Absolute Auto 6.5 K/mm3 (1.3-6.7); Platelet Count Result 196 k/mm3 (150-375); Red Blood Count 4.13 M/mm3 (4.2-5.4); Red Cell Distribution Width 13.6 % (11.5-14.5); White Blood Count 9.5 K/mm3 (4.5-10.0)
[2021-06-24 13:35] LABS: Potassium 2.9 mmol/L (3.4-5.0)
[2021-06-24 14:00] VITALS: BP 104/65; PULSE 68; RESP 18; TEMP 36.2; O2SAT 97
[2021-06-24] MEDS: CLOPIDOGREL BISULFATE 75 MG TABLET PO (17:19)
[2021-06-24] MEDS: POTASSIUM CHLORIDE 20 MEQ TABLET.ER PO (17:19)
[2021-06-24] MEDS: TOPIRAMATE 100 MG TABLET 600 MG PO (20:38)
[2021-06-24] MEDS: METOPROLOL TARTRATE 25 MG TABLET PO (20:38)
--- NOTE | 2021-06-24 21:26 | PHAR ---
PHARMACY VERIFIED HOME MED: *USE FROM HOME* TOPIRAMATE 200 MG TABLET TAKE 3 TABLETS EVERY 12 HOURS * FALL RISK *
[2021-06-24 21:44] VITALS: BP 121/62; PULSE 58; RESP 18; TEMP 36.6; O2SAT 97
[2021-06-24] MEDS: MORPHINE SULFATE (*CRX) 30 MG TABCR PO (22:23)
[2021-06-24] MEDS: MORPHINE SULFATE (*CRX) 15 MG TABCR PO (22:23)
[2021-06-25 05:56] VITALS: BP 115/65; PULSE 55; RESP 18; TEMP 36.6; O2SAT 100
[2021-06-25] MEDS: ONDANSETRON INJ 4 MG/2 ML VIAL IV PUSH ×2 (06:16→14:14)
[2021-06-25 08:05] LABS: Basophils Absolute Auto 0.1 K/mm3 (0.0-0.1); Basophils Percent Auto 0.7 % (0.2-1.2); Eosinophils Absolute Auto 0.4 K/mm3 (0-0.3); Eosinophils Percent Auto 4.2 % (0-4.4); Hematocrit 36.2 % (37.0-47.0); Hemoglobin 11.6 g/dL (12.0-15.0); Immature Granulocyte Absolute 0.08 K/mm3 (0.00-0.031); Immature Granulocyte Percent A 0.9 % (0-0.5); Lymphocytes Absolute Auto 2.11 K/mm3 (0.9-3.2); Lymphocytes Percent Auto 24.4 % (18.3-44.2); Mean Corpuscular Hemoglobin 30.1 pg (26-34); Mean Corpuscular Volume 93.8 fl (80-100); Mean Platelet Volume 11.7 fl (7.4-10.4); Monocytes Absolute Auto 0.6 K/mm3 (0.1-0.6); Monocytes Percent Auto 6.5 % (2.6-8.5); Neutrophils Absolute Auto 5.5 K/mm3 (1.3-6.7); Neutrophils Percent Auto 63.3 % (45.5-73.1); Platelet Count Result 193 k/mm3 (150-375); Red Blood Count 3.86 M/mm3 (4.2-5.4); Red Cell Distribution Width 13.8 % (11.5-14.5); White Blood Count 8.7 K/mm3 (4.5-10.0)
[2021-06-25 08:10] LABS: Alanine Aminotransferase 56 U/L (6-35); Albumin Level 3.1 g/dL (3.5-5.1); Alkaline Phosphatase 56 U/L (38-126); Anion Gap 3 mmol/L (8-16); Aspartate Amino Transferase 30 U/L (14-36); Bilirubin,Total 0.8 mg/dL (0.2-1.3); Blood Urea Nitrogen 5 mg/dL (7-17); Calcium 8.5 mg/dL (8.4-10.2); Carbon Dioxide 28 mmol/L (22-30); Chloride 109 mmol/L (98-107); Estimated CRCL calculation 56 ml/min; Estimated Glomerular Filt Rate > 60; Glucose 84 mg/dL (65-110); Potassium 3.3 mmol/L (3.4-5.0); Sodium 140 mmol/L (137-145)
[2021-06-25 08:28] LABS: Lipase 226 U/L (23-300)
[2021-06-25] MEDS: PANTOPRAZOLE SODIUM IV 40 MG VIAL IV PUSH ×2 (09:21→22:16)
[2021-06-25] MEDS: CLOPIDOGREL BISULFATE 75 MG TABLET PO (09:21)
[2021-06-25] MEDS: MORPHINE SULFATE (*CRX) 30 MG TABCR PO ×2 (09:21→22:16)
[2021-06-25 09:22] VITALS: PULSE 74
[2021-06-25] MEDS: MORPHINE SULFATE (*CRX) 15 MG TABCR PO ×2 (09:22→22:16)
[2021-06-25] MEDS: POTASSIUM CHLORIDE 20 MEQ TABLET.ER 40 MEQ PO (09:22)
[2021-06-25] MEDS: METOPROLOL TARTRATE 25 MG TABLET PO (09:22)
--- NOTE | 2021-06-25 12:39 | PM.IMPN ---
Progress Note: A&P Assessment and Plan (1) Nausea and vomiting: Code(s): R11.2 - Nausea with vomiting, unspecified Status: Acute Assessment and Plan: Lipase 223, normalized. Patient endorses significant burning pain and bloat today. At this time, patient is tolerating p.o. intake, requesting solids. Surgery was consulted, no indication for surgery, and has signed off. GI has been consulted and advises stool bulking agents and fiber. Stable transaminitis, likely related to DOWELL. Hepatitis panel negative. Direct, indirect, total bilirubin normal. Fecal occult blood negative. Triglycerides 75. Right upper quadrant ultrasound shows gallbladder wall thickening, hepatic steatosis. CBD 7 mm. No gallstones or pericholecystic fluid. KUB showed gaseous gaseous distension of nondilated large bowel. No apparent bowel obstruction. Started Mylicon for gas. Suspect this is likely viral in nature. C.Diff PCR KUB due to worsening pain today. Diet will be advanced today D/C psyllium fiber as pt does not tolerate. (2) Chest pain: Code(s): R07.9 - Chest pain, unspecified Status: Acute Assessment and Plan: Pt chest pain free still. Chest pain workup was negative for cardiac causes. I suspect this was due to her recent lipase elevation. EKG showed sinus bradycardia borderline T-wave abnormality in the anterior leads, which is her fairly consistent with previous to EKGs. CXR shows no cardiopulmonary abnormality. Serial troponin unremarkable. Continue to monitor (3) Elevated lipase: Code(s): R74.8 - Abnormal levels of other serum enzymes Status: Acute Assessment and Plan: Resolved. (4) Leukocytosis: Qualifiers: Leukocytosis type: unspecified Qualified Code(s): D72.829 - Elevated white blood cell count, unspecified Code(s): D72.829 - Elevated white blood cell count, unspecified Status: Acute Assessment and Plan: WBC has normalized, patient is afebrile, no bacterial source of infection identified. UA was unremarkable. procalcitonin normal Lactic acid normal Blood cultures show no growth. Stool cultures negative C. Diff PCR today as patient continues to have formed, though loose stools. Continue to monitor vital signs (5) Electrolyte abnormality: Code(s): E87.8 - Other disorders of electrolyte and fluid balance, not elsewhere classified Status: Acute Assessment and Plan: Potassium 3.3 (3.0) (2.9) Continue PO potassium and monitor. Sodium 141 Will continue to monitor. (6) Seizure disorder: Code(s): G40.909 - Epilepsy, unspecified, not intractable, without status epilepticus Status: Acute Assessment and Plan: Patient on home Topamax 600 mg p.o. b.i.d., but was unable to tolerate p.o. medications and was transitioned to IV Keppra. Patient is having p.o. intake now and we will place her back on her home dose of Topamax. Fall precautions, as patient does report frequent falls. Maintain optimal environment for patient, as she does say fluorescent lights, television have triggered seizures in the past. (7) Ileus: Code(s): K56.7 - Ileus, unspecified Status: Acute Assessment and Plan: This has resolved. Patient is passing gas and having bowel movement. Continue to monitor (8) Fall: Code(s): W19.XXXA - Unspecified fall, initial encounter Status: Acute Assessment and Plan: Patient was evaluated in the ER with pelvis, chest x-ray, head CT, and CT of the abdomen and pelvis without contrast, and was found to have no acute fractures, no acute intracranial process. (9) Transaminitis: Code(s): R74.01 - Elevation of levels of liver transaminase levels Status: Acute Assessment and Plan: Plan as above. (10) CHF (congestive heart failure): Code(s): I50.9 - Heart failure, unspecified Status: Ac
[2021-06-25 13:46] LABS: Potassium 3.3 mmol/L (3.4-5.0)
[2021-06-25 14:00] VITALS: BP 85/42; PULSE 62; RESP 16; TEMP 36.3; O2SAT 98
[2021-06-25] MEDS: SIMETHICONE 80 MG TAB.CHEW PO ×3 (14:13→22:17)
[2021-06-25 15:05] VITALS: BP 103/62
[2021-06-25] MEDS: POTASSIUM CHLORIDE 20 MEQ TABLET.ER PO (17:07)
[2021-06-25 22:00] VITALS: BP 84/52; PULSE 67; RESP 16; TEMP 36.7; O2SAT 99
[2021-06-26 05:31] VITALS: BP 101/54; PULSE 63; RESP 16; TEMP 36.2; O2SAT 97
--- NOTE | 2021-06-26 07:25 | PM.DS ---
DS: Admitting Diagnosis Discharge Date 06/26/21 Admitting Diagnosis Nausea/vomiting DS: Discharge Diagnosis Discharge Diagnosis (1) Nausea and vomiting: Code(s): R11.2 - Nausea with vomiting, unspecified Status: Acute Assessment and Plan: Lipase 223, normalized. No WBC elevation. All antibiotics and IV fluids have been discontinued due to culture results and appropriate PO intake. Her stools are formed, only one BM yesterday. At this time, patient is tolerating low fat diet, eating 100% of her meals and taking all her home PO medications. Surgery was consulted, no indication for surgery, and has signed off. GI has been consulted and advises stool bulking agents and fiber. Improving transaminitis, likely related to DOWELL. Hepatitis panel negative. Direct, indirect, total bilirubin normal. Fecal occult blood negative. Triglycerides 75. Right upper quadrant ultrasound shows gallbladder wall thickening, hepatic steatosis. CBD 7 mm. No gallstones or pericholecystic fluid. 06/26/21 KUB showed gaseous gaseous distension of nondilated large bowel. No apparent bowel obstruction. Stool cultures and C. Diff negative. Started Mylicon for gas. Suspect this is likely viral in nature. Outpatient follow up with primary care as needed. (2) Chest pain: Code(s): R07.9 - Chest pain, unspecified Status: Acute Assessment and Plan: Pt chest pain free still. Chest pain workup was negative for cardiac causes. I suspect this was due to her recent lipase elevation. EKG showed sinus bradycardia borderline T-wave abnormality in the anterior leads, which is consistent with previous to EKGs. CXR shows no cardiopulmonary abnormality. Serial troponin unremarkable. Outpatient follow up. (3) Elevated lipase: Code(s): R74.8 - Abnormal levels of other serum enzymes Status: Acute Assessment and Plan: Resolved. (4) Leukocytosis: Qualifiers: Leukocytosis type: unspecified Qualified Code(s): D72.829 - Elevated white blood cell count, unspecified Code(s): D72.829 - Elevated white blood cell count, unspecified Status: Acute Assessment and Plan: WBC is mildly elevated with eosinophilia only, patient is afebrile, no bacterial source of infection identified. UA was unremarkable. procalcitonin normal Lactic acid normal Blood cultures show no growth. Stool cultures negative Patient does report having increase in allergic reactions lately, have advised her to follow up with her primary care provider regarding potential allergy referral. (5) Electrolyte abnormality: Code(s): E87.8 - Other disorders of electrolyte and fluid balance, not elsewhere classified Status: Acute Assessment and Plan: Potassium 3.5 (3.0) (2.9) Continue home PO potassium Sodium 141, normal. (6) Seizure disorder: Code(s): G40.909 - Epilepsy, unspecified, not intractable, without status epilepticus Status: Acute Assessment and Plan: Patient on home Topamax 600 mg p.o. b.i.d., but was unable to tolerate p.o. medications and was transitioned to IV Keppra. Patient is having p.o. intake now and we will place her back on her home dose of Topamax. Continue home medications upon discharge (7) Ileus: Code(s): K56.7 - Ileus, unspecified Status: Acute Assessment and Plan: Repeat KUB yesterday shows no ileus or obstruction. Patient is passing gas and having bowel movement. (8) Fall: Code(s): W19.XXXA - Unspecified fall, initial encounter Status: Acute Assessment and Plan: Patient was evaluated in the ER with pelvis, chest x-ray, head CT, and CT of the abdomen and pelvis without contrast, and was found to have no acute fractures, no acute intracranial process. (9) Transaminitis: Code(s): R74.01 - Elevation of levels of liver transaminase levels Status: Acute Assessment and
[2021-06-26 08:42] VITALS: PULSE 69
[2021-06-26] MEDS: PANTOPRAZOLE SODIUM IV 40 MG VIAL IV PUSH (08:42)
[2021-06-26] MEDS: POTASSIUM CHLORIDE 20 MEQ TABLET.ER 40 MEQ PO (08:42)
[2021-06-26] MEDS: METOPROLOL TARTRATE 25 MG TABLET PO (08:42)
[2021-06-26] MEDS: SIMETHICONE 80 MG TAB.CHEW PO ×2 (08:42→13:08)
[2021-06-26] MEDS: MORPHINE SULFATE (*CRX) 15 MG TABCR PO (08:43)
[2021-06-26] MEDS: MORPHINE SULFATE (*CRX) 30 MG TABCR PO (08:44)
[2021-06-26] MEDS: CLOPIDOGREL BISULFATE 75 MG TABLET PO (08:44)
[2021-06-26] MEDS: ONDANSETRON INJ 4 MG/2 ML VIAL IV PUSH (08:53)
[2021-06-26 09:42] LABS: Basophils Absolute Auto 0.1 K/mm3 (0.0-0.1); Basophils Percent Auto 0.9 % (0.2-1.2); Eosinophils Absolute Auto 0.5 K/mm3 (0-0.3); Eosinophils Percent Auto 4.6 % (0-4.4); Hemoglobin 12.3 g/dL (12.0-15.0); Immature Granulocyte Absolute 0.14 K/mm3 (0.00-0.031); Immature Granulocyte Percent A 1.4 % (0-0.5); Lymphocytes Absolute Auto 2.55 K/mm3 (0.9-3.2); Lymphocytes Percent Auto 24.7 % (18.3-44.2); Mean Corpuscular HGB Conc 32.4 g/dl (32-36); Mean Corpuscular Hemoglobin 30.1 pg (26-34); Mean Corpuscular Volume 93.1 fl (80-100); Monocytes Absolute Auto 0.6 K/mm3 (0.1-0.6); Neutrophils Absolute Auto 6.5 K/mm3 (1.3-6.7); Neutrophils Percent Auto 62.4 % (45.5-73.1); Platelet Count Result 192 k/mm3 (150-375); Red Blood Count 4.08 M/mm3 (4.2-5.4); Red Cell Distribution Width 13.9 % (11.5-14.5); White Blood Count 10.3 K/mm3 (4.5-10.0)
[2021-06-26 10:25] LABS: Alanine Aminotransferase 41 U/L (6-35); Albumin Level 3.6 g/dL (3.5-5.1); Alkaline Phosphatase 63 U/L (38-126); Anion Gap 8 mmol/L (8-16); Aspartate Amino Transferase 23 U/L (14-36); Bilirubin,Total 0.7 mg/dL (0.2-1.3); Blood Urea Nitrogen 9 mg/dL (7-17); Calcium 8.6 mg/dL (8.4-10.2); Carbon Dioxide 21 mmol/L (22-30); Chloride 109 mmol/L (98-107); Estimated CRCL calculation 56 ml/min; Estimated Glomerular Filt Rate > 60; Glucose 95 mg/dL (65-110); Potassium 3.5 mmol/L (3.4-5.0); Sodium 138 mmol/L (137-145)
--- NOTE | 2021-06-26 11:15 | PCNFU ---
Nutrition Follow-Up Complete: Inadequate oral intake related to diet order and altered GI function as evidenced by diet order and pt report Goal:Meet nutritional needs Pt is currently meeting goal. Continue with current goal. Pt current nutrition is low fat diet. Nutrition recommendation: Continue with current plan of care Last recorded weight is 83.7 kg. Bowel Motility: +BM 06/25 Labs Reviewed: Hgb:11.7, HCT:36.4, Alb:3.1, K:3.2 Meds Noted:zofran, protonix Skin:WNL Additional Notes: Pt diet advanced to low fat. Intake is 100% all meals, tolerating well. Probable D/C today. Monitor intake, wt, labs. Follow up in 7 days if still here.
[2021-06-26 12:55] LABS: Toxigenic C. Diff NEGATIVE (NEGATIVE)
[2021-06-26 14:00] VITALS: BP 111/64; PULSE 65; RESP 18; TEMP 36.7; O2SAT 100
== END 2021-06-26 16:44 | disposition home or self-care (01) | DRG 392 ==
LOC: ANHED 17:42 → ANH3MEDSUR 17:47
PROVIDERS: Emergency Medicine; Internal Medicine; Nurse Practitioner Adult Health; Student in an Organized Health Care Education/Training Program; Admitting Provider Internal Medicine; Emergency Provider Emergency Medicine; PCP Family Medicine; Visit Provider Internal Medicine
DX: A08.4 Viral intestinal infection, unspecified (principal); I13.0 Hypertensive heart and chronic kidney disease with heart failure and stage 1 through stage 4 chronic kidney disease, or unspecified chronic kidney disease; I50.32 Chronic diastolic (congestive) heart failure; Z20.822 Contact with and (suspected) exposure to COVID-19; W19.XXXA Unspecified fall, initial encounter; G40.909 Epilepsy, unspecified, not intractable, without status epilepticus; E11.22 Type 2 diabetes mellitus with diabetic chronic kidney disease; N18.2 Chronic kidney disease, stage 2 (mild); E87.8 Other disorders of electrolyte and fluid balance, not elsewhere classified; E78.5 Hyperlipidemia, unspecified; G89.4 Chronic pain syndrome; D72.829 Elevated white blood cell count, unspecified; R74.8 Abnormal levels of other serum enzymes; R07.89 Other chest pain; K75.81 Nonalcoholic steatohepatitis (NASH); R94.31 Abnormal electrocardiogram [ECG] [EKG]; M85.80 Other specified disorders of bone density and structure, unspecified site; S40.812A Abrasion of left upper arm, initial encounter; W10.8XXA Fall (on) (from) other stairs and steps, initial encounter; R29.6 Repeated falls; Z86.73 Personal history of transient ischemic attack (TIA), and cerebral infarction without residual deficits; I25.2 Old myocardial infarction; Z79.02 Long term (current) use of antithrombotics/antiplatelets
CPT/HCPCS: 36415; 70450; 71045; 72170; 74018; 74176; 76705; 80048; 80053; 80061; 80074; 81001; 82248; 82274; 82668; 82948; 83036; 83605; 83690; 83735; 83880; 84132; 84145; 84484; 85025; 87040; 87045; 87427; 87493; 87804; 93005; 93306; 93970; 96374; 99285; A9270; C9113; C9803; J0131; J1953; J2270; J2405; J2543; J3475; J3480; J7030; J7040; J7070; U0003; U0005

== ENCOUNTER 2021-08-07 10:40 | Outpatient (CLI) | payer MEDICARE, SELFPAY ==
--- NOTE | ~2021-08-07 | MR_ITS ---
EXAMINATION: MR lumbar spine wo con DATE: 08/07/2021 11:28 INDICATION: Lumbar radiculopathy TECHNIQUE: Magnetic resonance imaging (MRI) of the lumbar spine was performed without intravenous con trast. Sequences included sagittal T2-weighted FSE, sagittal T2-weighted FS FSE, sagittal T1-weighted FSE, and axial T2-weighted FSE. COMPARISON: CT abdomen and pelvis dated 06/29/2021 FINDINGS: L3 and L4 laminectomies, metallic magnetic field artifact associated with bilateral vertical annette and pedicle screw fixation for posterior spinal fusion extending from L2 through L5. L3-L4 anterior spina l fusion with incorporated bone graft and anterior plate and screw fixation. Of note the prior CT dem onstrates fracture of the anterior plate screws at L4. L3-L4 is fused with the proximal 3 to 4 mm ant erolisthesis on L4. There is also a 2 mm retrolisthesis T12 on L1. Minimal to mild anterior wedging a t T10 and T11. The more caudal nonfused vertebral body heights are normal. Severe disc height loss at L4-L5. Moderate disc height loss at T9-T10 through T12-L1 and L2-L3. Mild disc height loss at L1-L2. Normal marrow signal. The conus medullaris terminates at L1. There is normal signal in the caudal s art cord. Fatty atrophy of the mid to lower lumbar posterior paraspinal musculature likely related to prior surgery with scarring seen overlying the midline of the mid to lower lumbar spine. Is likely fluid collection extending along the medial margin of the heads of the right-sided pedicle screws wh ich extends 5.5 cm craniocaudally and measures up to 1.8 x 1.0 cm in maximal orthogonal dimensions mo st likely representing a postoperative seroma. The following disc levels are specifically discussed: T11-T12: Disc is bulging. There is mild bilateral facet joint osteoarthritis. There is mild bilateral neural foraminal stenosis. There is mild central canal stenosis. T12-L1: Disc is bulging. There is mild bilateral facet joint osteoarthritis. There is mild bilateral neural foraminal stenosis. There is mild central canal stenosis. L1-L2: Disc is bulging, eccentric to the right. There is hypertrophy of the ligamentum flavum. There is mild bilateral facet joint osteoarthritis. There is mild bilateral neural foraminal stenosis. Ther e is mild central canal stenosis. L2-L3: Disc is mildly bulging. Posterior spinal fusion with hypertrophic change about the fused facet joints. There is mild left neural foraminal stenosis. There is no central canal stenosis with L3 conteh inectomy and posterior decompression.. L3-L4: Mild hypertrophic change along the posterior margin of the fused disc space as well as along t he medial margin of the fused bilateral facet joints. There is mild bilateral neural foraminal stenos is. There is no central canal stenosis with L3 and L4 laminectomies with posterior decompression.. L4-L5: The disc does not extend beyond the endplate margin. Posterior spinal fusion at the bilateral facet joints. There is mild bilateral neural foraminal stenosis. There is no central canal stenosis. L5-S1: The disc does not extend beyond the endplate margin. There is moderate bilateral facet joint o steoarthritis. There is mild right and mild to moderate left neural foraminal stenosis. There is no c entral canal stenosis. IMPRESSION: 1. Moderate to severe lumbar and lower thoracic spondylosis with instrumented anterior spinal fusion at L3-L4 and a cemented posterior spinal fusion at L2-S5. 2. 5.5 x 1.8 x 1.0 cm loculated fluid collection along the heads of the right-sided pedicle screws mo st likely representing a small postoperative seroma. Differential would include abscess in the approp riate clinical setting although there is no significant surrounding inflammatory stranding to elevate suspicion. Reviewed, dictated and finalized at location A. E
== END 2021-08-07 10:41 ==
PROVIDERS: PCP Family Medicine; Visit Provider Physical Medicine & Rehabilitation
DX: M54.16 Radiculopathy, lumbar region (principal); M43.06 Spondylolysis, lumbar region
CPT/HCPCS: 72148

== ENCOUNTER → 2022-11-06 13:11 | Outpatient (CLI) | payer MEDICARE, SELFPAY ==
--- NOTE | ~2022-11-06 | DEXA_ITS ---
Bone Density Report Name: LEIGH ANN ARRIAGA Age: 62 Sex: Female Ethnicity: White Date of : 1960 Indication: postmenopausal; screening for osteoporosis; height loss; prior fracture; seizure disorder; end stage renal disease; hysterectomy; Referring Provider: KAI BURNETT Study: Bone densitometry was performed. Exam Date: November 06, 2022 Accession number: [id number] Bone Density: Region BMD T-score Z-score Classification AP Spine (L1, L2) 0.945 -0.3 1.1 Normal Femoral Neck (Left) 0.739 -1.0 0.4 Normal Total Hip (Left) 0.900 -0.3 0.7 Normal Femoral Neck (Right) 0.802 -0.4 1.0 Normal Total Hip (Right) 0.818 -1.0 0.0 Normal Total Hip Mean 0.859 -0.7 0.4 Normal World Health Organization criteria for BMD impression classify patients as: Normal (T-score at or above -1.0), Osteopenia (T-score between -1.0 and -2.5), or Osteoporosis (T-score at or below -2.5). 10-year Fracture Risk: FRAX not reported because: All T-scores for Spine Total, Hip Total, Femoral Neck at or above -1.0 Previous Exams: Region Exam Age BMD T-score BMD Change BMD Change Date g/cm2 vs Baseline vs Previous AP Spine(L1, L2) 11/06/2022 62 0.945 -0.3 -0.014 -0.014 11/04/2019 59 0.959 -0.2 Total Hip(Left) 11/06/2022 62 0.900 -0.3 0.003 0.003 11/04/2019 59 0.897 -0.4 Total Hip(Right) 11/06/2022 62 0.818 -1.0 -0.017 -0.017 11/04/2019 59 0.835 -0.9 *Denotes significance at 95% confidence level, LSC for AP Spine = 0.022 g/cm2, LSC for Total Hip = 0.027 g/cm2 Clinical Information Provided by Patient: Has had a low trauma fracture Has used the following medications: Vitamin D Has the following medical conditions: Any Seizure Disorders, End stage renal disease, Hysterectomy, Stage 3 renal failure Patient maximum height was 64.5 Menopause Age: 26 No regular weight bearing exercise Onset of menses at age 13 Number of children 0 Impression: The patient has normal bone mass. The patient has risk factors, including: previous fracture. No significant bone loss was observed. Discussion: BONE DENSITY IS ABOVE THE MINIMUM DESIRABLE LEVEL AT ALL SKELETAL SITES TESTED. This patient?s bone mineral density is above the minimum desirable level (T-score -1.0 or better) at all sites measured. The patient should follow a healthful lifestyle (good nutrition with adequate calcium and vitamin D, and appropriate weight-
== END ==
PROVIDERS: PCP Family Medicine; Visit Provider Physician Assistant
DX: Z78.0 Asymptomatic menopausal state (principal)
CPT/HCPCS: 77080

== ENCOUNTER → 2023-03-26 09:37 | Outpatient (CLI) | payer MEDICARE, SELFPAY ==
--- NOTE | ~2023-03-26 | MM_ITS ---
EXAMINATION: MM screening albino BI w alber HISTORY: Screening mammogram TECHNIQUE: Craniocaudal and mediolateral oblique 3-D tomosynthesis images were obtained and synthetic 2-D images were generated. CAD analysis was submitted and interpreted. COMPARISON: No prior mammogram is available for comparison at this institution. BREAST PARENCHYMAL COMPOSITION: The breasts are almost entirely fatty. FINDINGS: No suspicious mass, calcification, or architectural distortion are identified in either pedro pablo ast to suggest malignancy. IMPRESSION: 1. No mammographic evidence of malignancy. 2. Recommend routine screening mammography in one year. BI-RADS Category 1: Negative Reviewed, dictated and finalized at location A. GER FILTER
== END ==
PROVIDERS: PCP Family Medicine; Visit Provider Physician Assistant
DX: Z12.31 Encounter for screening mammogram for malignant neoplasm of breast (principal)
CPT/HCPCS: 77063; 77067

== ENCOUNTER 2023-11-04 17:05 | Observation (INO) | payer MEDICARE, SELFPAY ==
[2023-11-04] VITALS (9 sets, daily range): BP systolic 133–170; BP diastolic 65–91; PULSE 61–96; RESP 12–18; TEMP 36.4–37.1; O2SAT 96–100; BMI 38.3
--- NOTE | ~2023-11-04 | NM_ITS ---
EXAMINATION: NM luiza stress w perfusion DATE: 11/05/2023 12:35 INDICATION: Chest pain. TECHNIQUE: Rest images were obtained following intravenous administration of 8.6 mCi Tc99m tetrofosmi n (Myoview). The patient was infused intravenously with Lexiscan (regadenoson). Then, 26.33 mCi Tc99m tetrofosmin (Myoview) was administered intravenously, and stress images were obtained. Data was onofre nstructed into short axis and horizontal and vertical long axis SPECT images. Gated SPECT images were also obtained. COMPARISON: None. FINDINGS: There is no definite reversible or fixed perfusion abnormality to suggest ischemia or infar ction. There is no segmental wall motion abnormality. Left ventricular ejection fraction measures > 70%. IMPRESSION: 1. No definite ischemia or infarct. 2. Normal left ventricular ejection fraction measuring >70%. Reviewed, dictated and finalized at location A.
--- NOTE | ~2023-11-04 | XR_ITS ---
XR chest 2V Ordering provider: Ortega Lamar MD History: 63 years Female with . CHEST PRESSURE . Comparison: June 22, 2021 FINDINGS: MEDIASTINUM: The cardiac silhouette is not enlarged. LUNGS: No infiltrates, effusions or pneumothorax. OTHER: No free air under the diaphragm. IMPRESSION: No acute cardiopulmonary pathology. Reviewed, dictated and finalized at location A.
--- NOTE | 2023-11-04 17:17 | ECG_ITS ---
Test Date: 2023-11-04 17:15:52 Measurements Intervals [place] Rate: 87 P: 58 MT: 146 QRS: 56 QRSD: 89 T: 7 QT: 331 QTc: 399 Interpretive Statements SINUS RHYTHM NONSPECIFIC ST & T-WAVE ABNORMALITY- ANTEROLAT/INF LEADS BORDERLINE ECG No previous ECG available for comparison Electronically Signed On 11-04-2023 18:46:24 CDT by Arnaldo Haywood D.O.
--- NOTE | 2023-11-04 17:53 | ED.ARRPALP ---
HPI - Arrhythmia/Palpitations General Chief Complaint: Arrhythmia/Palpitations <Asia Hennessy PA-C - Last Filed: 11/04/23 20:26> Stated Complaint: abnormal VS <Asia Hennessy PA-C - Last Filed: 11/04/23 20:26> Time Seen by Provider: 11/04/23 17:22 <Asia Hennessy PA-C - Last Filed: 11/04/23 20:26> History of Present Illness HPI narrative: 63-year-old female with history of hyperlipidemia, hypertension, multiple CVAs, CHF, STEMI in 2019 presents to the ED via EMS from home for chest pain that started at 3:00 p.m. today. Patient states she was sitting down when she began feeling a pressure in the center of her chest was riding a both of her arms with associated shortness of breath diaphoresis. States she checked her heart rate and it was in the 140s to 150s. States her blood pressures around 130 systolic. She contacted 911 was transported to the ED. Upon my evaluation she states that the chest pressure has resolved but she is still feeling somewhat short of breath, especially when talking. She notes that she has had approximately 20 lb weight gain in the past month which is abnormal. She also notes that she had COVID-19 2 weeks ago. She denies fever, cough or congestion, history of VTE. His international freight forwarder is Dr. Esteves at [facility]. She denies history of CABG or cardiac stents but did undergo a cardiac catheterization in 2019 after her AL. She states she has been compliant with her medications. <Asia Hennessy PA-C - Last Filed: 11/04/23 20:26> Related Data Home Medications: Home Medications Medication Instructions Recorded Confirmed furosemide 20 mg tablet 20 mg PO PRN PRN swelling and/or 11/06/19 11/04/23 SOB metoprolol tartrate 25 mg tablet 25 mg PO BID 02/25/20 11/04/23 topiramate 200 mg tablet 600 mg PO BID 02/25/20 11/04/23 potassium chloride 20 mEq 20 meq PO DAILY 10/12/20 11/04/23 tablet,extended release(part/cryst) cetirizine 10 mg disintegrating 10 mg PO DAILY 09/11/21 11/04/23 tablet alirocumab 75 mg/mL subcutaneous 75 mg subcut Q14D 10/19/22 11/04/23 pen injector (Praluent Pen) cholecalciferol (vitamin D3) 125 125 mcg PO DAILY 11/04/23 11/04/23 mcg (5,000 unit) tablet (Vitamin D3) clopidogrel 75 mg tablet 75 mg PO DAILY 11/04/23 11/04/23 ergocalciferol (vitamin D2) 1,250 50,000 mcg PO WEEKLY 11/04/23 11/04/23 mcg (50,000 unit) capsule ezetimibe 10 mg tablet 10 mg PO DAILY 11/04/23 11/04/23 morphine 30 mg tablet,extended 30 mg PO DAILY 11/04/23 11/04/23 release polyethylene glycol 3350 17 gram 17 g PO DAILY 11/04/23 11/04/23 oral powder packet (ClearLax) simethicone 80 mg chewable tablet 80 mg PO QID PRN Indigestion 11/04/23 11/04/23 <Asia Hennessy PA-C - Last Filed: 11/04/23 20:26> Allergies/Adverse Reactions: Allergies Allergy/AdvReac Type Severity Reaction Status Date / Time metrizamide Allergy Severe hypertensive Verified 11/04/23 22:16 crisis vancomycin Allergy Severe Anaphylaxis Verified 11/04/23 22:16 baclofen Allergy Intermediate toxic Verified 11/04/23 22:16 adhesive tape Allergy Mild rash Verified 11/04/23 22:16 cephalexin Allergy Mild Hives Verified 11/04/23 22:16 ciprofloxacin Allergy Mild hives Verified 11/04/23 22:16 duloxetine Allergy Mild lethargy, Verified 11/04/23 22:16 hives hydromorphone Allergy Mild Itching Verified 11/04/23 22:16 lamotrigine Allergy Mild Rash Verified 11/04/23 22:16 meperidine Allergy Mild Rash Verified 11/04/23 22:16 oxycodone Allergy Mild Hives Verified 11/04/23 22:16 simvastatin Allergy Mild Itching Verified 11/04/23 22:16 sumatriptan Allergy Mild Hives Verified 11/04/23 22:16 oxcarbazepine Allergy Other Verified 11/04/23 22:16 topiramate Allergy Itching Verified 11/04/23 22:19 Influenza Virus Vaccines AdvReac Severe Dyspnea / Verified 11/04/23 22:16 SOB methadone AdvReac Mild Nausea and Verified 11/04/23 22:16 Vomiting Contrast Media Allergy Severe Hypertensio Uncoded 09
[2023-11-04] MEDS: ASPIRIN 81 MG CHEWABLE TABLET 324 MG PO (18:08)
[2023-11-04 18:12] LABS: Basophils Absolute Auto 0.1 K/mm3 (0.0-0.1); Basophils Percent Auto 0.7 % (0.2-1.2); Eosinophils Absolute Auto 0.2 K/mm3 (0-0.3); Eosinophils Percent Auto 1.7 % (0-4.4); Hematocrit 41.3 % (37.0-47.0); Hemoglobin 13.3 g/dL (12.0-15.0); Immature Granulocyte Absolute 0.06 K/mm3 (0.00-0.031); Immature Granulocyte Percent A 0.5 % (0-0.5); Lymphocytes Absolute Auto 2.85 K/mm3 (0.9-3.2); Lymphocytes Percent Auto 23.8 % (18.3-44.2); Mean Corpuscular HGB Conc 32.2 g/dl (32-36); Mean Corpuscular Hemoglobin 29.2 pg (26-34); Mean Corpuscular Volume 90.6 fl (80-100); Mean Platelet Volume 11.2 fl (7.4-10.4); Monocytes Absolute Auto 0.7 K/mm3 (0.1-0.6); Monocytes Percent Auto 6.1 % (2.6-8.5); Neutrophils Absolute Auto 8.1 K/mm3 (1.3-6.7); Neutrophils Percent Auto 67.2 % (45.5-73.1); Platelet Count Result 233 k/mm3 (150-375); Red Blood Count 4.56 M/mm3 (4.2-5.4); Red Cell Distribution Width 13.5 % (11.5-14.5)
[2023-11-04 18:22] LABS: INR 1.2; Prothrombin Time 15.1 Seconds (11.1-14.7)
[2023-11-04 18:23] LABS: Partial Thromboplastin Time 33.5 Seconds (22.3-36.8)
[2023-11-04 18:24] LABS: Alanine Aminotransferase 19 U/L (6-35); Albumin Level 4.3 g/dL (3.5-5.1); Alkaline Phosphatase 95 U/L (38-126); Anion Gap 13 mmol/L (4-12); Aspartate Amino Transferase 27 U/L (14-36); Bilirubin,Total 0.2 mg/dL (0.2-1.3); Blood Urea Nitrogen 13 mg/dL (7-17); Calcium 9.6 mg/dL (8.4-10.2); Carbon Dioxide 20 mmol/L (22-30); Chloride 107 mmol/L (98-107); Estimated CRCL calculation 59 ml/min; Estimated Glomerular Filt Rate > 60; Glucose 192 mg/dL (65-110); Lipase 225 U/L (23-300); Potassium 3.7 mmol/L (3.4-5.0); Sodium 140 mmol/L (137-145)
[2023-11-04 18:27] LABS: D Dimer < 0.27 ug/mL (<0.48)
[2023-11-04 18:36] LABS: Troponin I < 0.012 ng/mL (0.000-0.034)
[2023-11-04] MEDS: LACTATED RINGERS 500 ML 999 ML IV CONT (18:47)
[2023-11-04 18:54] LABS: NT Pro B Type Natriuretic Pept 239 pg/mL (19.9-100)
[2023-11-04 18:58] LABS: Beta-Hydroxybutyrate/Acetoacetate 0.12 mmol/L (0.02-0.27)
--- NOTE | 2023-11-04 20:45 | PM.IMHP ---
H&P: HPI History of Present Illness Date/Time: 11/04/23 20:45 Chief Complaint: chest pain. Narrative: This is a 63-year-old female with past medical history significant for coronary artery disease, stroke, congestive heart failure, dyslipidemia, seizure disorder. Patient presents to the emergency room due to chest pain for med nurse has equipment at home to measure blood pressure and pulse oximetry, pulse oximeter registered heart rate of over 150. Patient with retrosternal chest pain with radiation bilaterally to both shoulders and arms, patient denies dizziness, lightheadedness, shortness of breath, nausea, vomiting, epigastric pain, leg swelling. Patient had COVID 2 weeks ago. Preliminary workup here has been essentially nonrevealing. XR chest 2V Ordering provider: Ortega Lamar MD History: 63 years Female with . CHEST PRESSURE . Comparison: June 22, 2021 FINDINGS: MEDIASTINUM: The cardiac silhouette is not enlarged. LUNGS: No infiltrates, effusions or pneumothorax. OTHER: No free air under the diaphragm. IMPRESSION: No acute cardiopulmonary pathology. Review of Systems Review of Systems: Chest pain, heart rate of 150 [facility] Past Medical History Medical History CHF (congestive heart failure) Chronic renal insufficiency, stage II (mild) CVA (cerebral vascular accident) Diabetes Hyperlipidemia Hypertension NSTEMI (non-ST elevated myocardial infarction) Paresthesia Seizure disorder Surgical History Surgical History History of cardiac catheterization Presented with chest pain and possible NSTEMI in 2019, underwent left heart catheterization and findings showed no significant coronary artery disease or stenosis. History of spinal surgery Reportedly a total of 8 surgeries with one being an anterior approach. History of total abdominal hysterectomy and bilateral salpingo-oophorectomy Family History Family History (Updated 11/04/23 @ 21:53 by Pilar Coates RN) Grandparent Renal cancer Hypertension Diabetes mellitus Acute myocardial infarction Congestive heart failure Other Colon cancer Stomach cancer Mother Hypertension Diabetes mellitus Father Hypertension Social History Social History Smoking status: Never smoker Second hand tobacco smoke exposure: No Alcohol intake: never Substance use: never Substance use type: does not use Do You Feel Safe in your Home?: No Lack of Transportation: No Lack of Food: Never True Current Housing: I Have Housing Concerned About Future Housing: YES Difficulty Paying Gas/Electric Bills: No Difficulty Paying for Meds: No Currently Unemployed: No Education: Associate Degree Difficulty w/ Childcare or Family Care: No Living arrangements: alone Additional occupation/education comments: Disability Gender identity (if verbalized by the patient): Female Spiritual care concerns: No Agree to blood products: Yes Meds Home Medications and Allergies Home Medications Medication Instructions Recorded Confirmed Type furosemide 20 mg tablet 20 mg PO PRN PRN swelling and/or 11/06/19 11/04/23 History SOB metoprolol tartrate 25 mg tablet 25 mg PO BID 02/25/20 11/04/23 History topiramate 200 mg tablet 600 mg PO BID 02/25/20 11/04/23 History potassium chloride 20 mEq 20 meq PO DAILY 10/12/20 11/04/23 History tablet,extended release(part/cryst) cetirizine 10 mg disintegrating 10 mg PO DAILY 09/11/21 11/04/23 History tablet alirocumab 75 mg/mL subcutaneous 75 mg subcut Q14D 10/19/22 11/04/23 History pen injector (Praluent Pen) epinephrine 0.3 mg/0.3 mL 0.3 mg (0.3 mL) IM PRN PRN 03/06/23 11/04/23 Rx injection, auto-injector (EpiPen Anaphylaxis #2 ea 2-Mario) clobetasol 0.05 % topical cream 1 applic topical DA
--- NOTE | 2023-11-04 22:16 | ADMGEN ---
This patient, Sierra Rod, was admitted to IMU Room 207-01. Patient/family oriented to hospital policies and general routines including ID bracelet, bed and alarms, visiting hours, pain management, procedures, bathroom and other care routines, personal items, smoking policy, room service/diet, and visiting hours. Information on how to activate the Rapid Response Team has been discussed. Patient/Family are encouraged to report perceived risks to care and to ask questions if they do not understand what they are told or what they should do.
[2023-11-04 22:21] LABS: Troponin I < 0.012 ng/mL (0.000-0.034)
[2023-11-05] VITALS (25 sets, daily range): BP systolic 109–137; BP diastolic 58–75; PULSE 52–125; RESP 16–20; TEMP 36.4–36.8; O2SAT 98–100
--- NOTE | 2023-11-05 | ECHO_ITS ---
Patient Info Name: Sierra Rod Age: 63 years : 1960 Gender: Female Ht: 61 in Wt: 202 lbs BSA: 2.03 m2 HR: 54 bpm BP: 109 / 58 mmHg Technical Quality: Fair Exam Date: 11/05/2023 2:33 PM Exam Location: Echo Lab Patient Status: Inpatient Admit Date: 11/04/2023 Staff Ordering Physician: Alexsandra May MD Human Machine Interface Engineer: Mellissa Whitney BETHANY Attending Provider: Alexsandra May MD Referring Physician: Lalo ZABALA; Exam Type: CA echo doppler color flow Study Info Indications R07.9 - Chest pain, unspecified I47.1 - Supraventricular tachycardia Complete two-dimensional, color flow and Doppler transthoracic echocardiogram is performed. Summary 1. Complete two-dimensional, color flow and Doppler transthoracic echocardiogram is performed. 2. Left ventricular chamber dimension is normal. 3. Left ventricular systolic function is normal, estimated at 60-65%. 4. The left ventricular diastolic function is normal. 5. E/e' 8 is minimally elevated. 6. There is trace mitral valve regurgitation. 7. There is trace tricuspid valve regurgitation. 8. No pulmonary hypertension, estimated pulmonary arterial systolic pressure is 25 mmHg. Left Ventricle E/e' 8 is minimally elevated. Left ventricular chamber dimension is normal. Left ventricular systolic function is normal, estimated at 60-65%. The left ventricular diastolic function is normal. Right Ventricle Right ventricular chamber dimension is normal. Right ventricular systolic function is normal. Left Atria Left atrial chamber dimension is normal. Right Atria Right atrial chamber dimension is normal. Aortic Valve The aortic valve is trileaflet. There is no aortic valve stenosis. There is no aortic valve regurgitation. Pulmonic Valve There is no pulmonic regurgitation. Mitral Valve There is no mitral valve stenosis. There is trace mitral valve regurgitation. Tricuspid Valve There is trace tricuspid valve regurgitation. No pulmonary hypertension, estimated pulmonary arterial systolic pressure is 25 mmHg. Pericardium/Pleural There is no pericardial effusion. Inferior Vena Cava Normal inferior vena cava with >50% collapse upon inspiration consistent with normal right atrial pressure, 5 mmHg. Aorta The aortic root size at the sinus of Valsalva is normal. Left Ventricular Outflow Tract Name Value Normal LVOT 2D LVOT Diameter 2.0 cm LVOT Doppler LVOT Peak Gradient 6 mmHg LVOT Mean Gradient 3 mmHg LVOT VTI 22 cm LVOT VTI/AV VTI Ratio 0.8 LVOT Stroke Volume 71 ml LVOT CO 5.2 l/min LVOT CI 2.5 l/min/m2 Pulmonic Valve Name Value Normal PV Doppler PV Peak Gradient 4 mmHg PV Regurgitation Doppler
--- NOTE | 2023-11-05 01:20 | ECG_ITS ---
Test Date: 2023-11-05 01:30:27 Measurements Intervals [place] Rate: 58 P: 50 NH: 163 QRS: 52 QRSD: 92 T: 79 QT: 412 QTc: 408 Interpretive Statements SINUS BRADYCARDIA EARLY PRECORDIAL R/S TRANSITION MODERATE T-WAVE ABNORMALITY, CONSIDER ANTERIOR ISCHEMIA BASELINE ARTIFACT- I, II, AVR, AVL, AVF, V3 ABNORMAL ECG Compared to ECG 11/04/2023 17:15:52 HEART RATE HAS DECREASED Possible ischemia now present Electronically Signed On 11-05-2023 06:38:53 CDT by Arnaldo Haywood D.O.
[2023-11-05 01:46] LABS: Troponin I < 0.012 ng/mL (0.000-0.034)
--- NOTE | 2023-11-05 08:19 | EST_ITS ---
Patient Info Name: Sierra Rod Age: 63 years : 1960 Gender: Female Ht: 63 in Wt: 201 lbs BSA: 2.05 m2 HR: 63 bpm BP: 128 / 74 mmHg Heart Rhythm: Sinus Arrhythmia Exam Date: 11/05/2023 11:36 AM Exam Location: Echo Lab Patient Status: Inpatient Admit Date: 11/04/2023 Staff Ordering Physician: Arnaldo Haywood DO Attending Provider: Alexsandra May MD Exercise Technologist: Harmony Vigil CT Exercise Physician: Arnaldo Haywood DO Exam Type: CA stress luiza w NM Study Info Indications R07.9 - Chest pain, unspecified A regadenoson stress test was performed. Summary 1. 1. Abnormal lexiscan stress test for ischemic ST changes by ECG criteria. 2. 2. Stable hemodynamics throughout the test. 3. 3. Nuclear scan to follow and will be reported separately. Please correlate with it. 4. 4. Patient informed of the above results. Protocol: Lexiscan Stress ECG Details Stage: REST Duration (min): 1 min : 48 sec HR (bpm): 65 SBP (mmHg): 128 DBP (mmHg): 74 Stage: REST Duration (min): 7 min : 53 sec HR (bpm): 68 SBP (mmHg): 128 DBP (mmHg): 74 Stage: STAGE 1 Duration (min): 1 min : 0 sec HR (bpm): 100 SBP (mmHg): 136 DBP (mmHg): 60 Stage: RECOVERY Duration (min): 1 min : 0 sec HR (bpm): 96 SBP (mmHg): 136 DBP (mmHg): 60 Stage: RECOVERY Duration (min): 2 min : 0 sec HR (bpm): 99 SBP (mmHg): 136 DBP (mmHg): 60 Stage: RECOVERY Duration (min): 3 min : 0 sec HR (bpm): 88 SBP (mmHg): 105 DBP (mmHg): 59 Stage: RECOVERY Duration (min): 4 min : 0 sec HR (bpm): 89 SBP (mmHg): 105 DBP (mmHg): 59 Stage: RECOVERY Duration (min): 5 min : 0 sec HR (bpm): 75 SBP (mmHg): 122 DBP (mmHg): 60 Stage: RECOVERY Duration (min): 5 min : 10 sec HR (bpm): 75 SBP (mmHg): 122 DBP (mmHg): 60 Rest HR: 68 bpm Peak HR: 102 bpm Rest Sys BP: 128 mmHg Peak Sys BP: 136 mmHg Max Pred HR: 157 bpm % Max Pred HR: 65 % Target HR: 133 bpm Max RPP: 13,872 bpm*mmHg Termination Reason: Completed protocol Cardiac Symptoms: Shortness of breath, Stomach pain, Chest pain Total Time: 1 min : 0 sec Rest Russell BP: 74 mmHg Peak Russell BP: 60 mmHg Total Dose: 0.4 mg Resting ECG Sinus rhythm. Stress ECG [address] depression in inferior leads and V3-V6. Aminophylline 100 mg IVx 1 given for intolerable symptoms. Arrhythmias None. Report Signatures
--- NOTE | 2023-11-05 08:28 | PM.CNCAR ---
Assessment and Plan Assessment and plan (1) Chest pain: Qualifiers: Chest pain type: unspecified Qualified Code(s): R07.9 - Chest pain, unspecified Code(s): R07.9 - Chest pain, unspecified Status: Acute Assessment and Plan: CT r/o by serial troponin and EKG. Obtain [employer]iscan myoview stress test. (2) SVT (supraventricular tachycardia): Code(s): I47.10 - Supraventricular tachycardia, unspecified Status: Acute Assessment and Plan: Back in Sinus rhythm. On Metoprolol Tartate 25 mg BID. Obtain echo. (3) Hyperlipidemia: Code(s): E78.5 - Hyperlipidemia, unspecified Status: Acute Assessment and Plan: On Zetia. Statins cause itching. (4) Essential hypertension: Code(s): I10 - Essential (primary) hypertension Status: Acute Assessment and Plan: Stable. History of Present Illness History of Present Illness Consult date/time: 11/05/23 08:28 Reason For Visit: Chest pain Narrative: 63 yr old woman presents to ER with chest pain. Her regular art critic is Dr. Josué Boland at [facility]. She has a history of hypertension, dyslipidemia, seizure disorder. Reports yesterday at 3 pm she suddenly felt a fast HR with chest pressure. She checked pulse ox and it showed HR 150 bpm, she called ambulance and a rhythm strip showed SVT at 150 bpm. It lasted 45 minutes in total. She is back in normal rhythm. Normally she can walk 1 block without any problems. Denies orthopnea, PND, edema, dizziness. Review of Systems Review of Systems: All systems reviewed & are unremarkable except as noted in HPI and below Constitutional: Constitutional: Reports as per HPI, Denies chills and Denies fever(s) Cardiovascular: Cardiovascular: Reports as per HPI, Reports chest pain and Reports rapid heart rate Respiratory: Respiratory: Reports as per HPI and Denies dyspnea Gastrointestinal: Gastrointestinal: Reports as per HPI and Denies abdominal pain Genitourinary: Genitourinary: Reports as per HPI and Denies dysuria Musculoskeletal: Musculoskeletal: Reports as per HPI Neurologic: Reports as per HPI, Denies dizziness and Denies syncope [facility] Past Medical History Medical History CHF (congestive heart failure) Chronic renal insufficiency, stage II (mild) CVA (cerebral vascular accident) Diabetes Hyperlipidemia Hypertension NSTEMI (non-ST elevated myocardial infarction) Paresthesia Seizure disorder Surgical History Surgical History History of cardiac catheterization Presented with chest pain and possible NSTEMI in 2019, underwent left heart catheterization and findings showed no significant coronary artery disease or stenosis. History of spinal surgery Reportedly a total of 8 surgeries with one being an anterior approach. History of total abdominal hysterectomy and bilateral salpingo-oophorectomy Family History Family History (Updated 11/04/23 @ 21:53 by Pilar Coates RN) Grandparent Renal cancer Hypertension Diabetes mellitus Acute myocardial infarction Congestive heart failure Other Colon cancer Stomach cancer Mother Hypertension Diabetes mellitus Father Hypertension Social History Social History Smoking status: Never smoker Second hand tobacco smoke exposure: No Alcohol intake: never Substance use: never Substance use type: does not use Do You Feel Safe in your Home?: No Lack of Transportation: No Lack of Food: Never True Current Housing: I Have Housing Concerned About Future Housing: YES Difficulty Paying Gas/Electric Bills: No Difficulty Paying for Meds: No Currently Unemployed: No Education: Associate Degree Difficulty w/ Childcare or Family Care: No Living arrangements: alone Additional occupation/education comm
[2023-11-05] MEDS: PANTOPRAZOLE 40 MG TABLET PO ×2 (09:14→20:06)
[2023-11-05] MEDS: METOPROLOL TARTRATE 25 MG TABLET PO (09:15)
[2023-11-05] MEDS: ASPIRIN 81 MG CHEWABLE TABLET PO (09:16)
[2023-11-05] MEDS: CLOPIDOGREL BISULFATE 75 MG TABLET PO (09:17)
[2023-11-05] MEDS: LORATADINE 10 MG TABLET PO (09:17)
--- NOTE | 2023-11-05 09:17 | PM.IMPN ---
Progress Note: A&P Assessment and Plan (1) Chest pain: Qualifiers: Chest pain type: unspecified Qualified Code(s): R07.9 - Chest pain, unspecified Code(s): R07.9 - Chest pain, unspecified Status: Acute (2) SVT (supraventricular tachycardia): Code(s): I47.10 - Supraventricular tachycardia, unspecified Status: Acute (3) Diastolic heart failure: Code(s): I50.30 - Unspecified diastolic (congestive) heart failure Status: Acute (4) Chronic renal insufficiency, stage II (mild): Code(s): N18.2 - Chronic kidney disease, stage 2 (mild) Status: Acute (5) Essential hypertension: Code(s): I10 - Essential (primary) hypertension Status: Acute Plan This is a 63-year-old female who presents to the ED for chest pain and at palpitation that started at 3:00 p.m. on 11/04/2023. Patient was sitting down when she began feeling a pressure in the center of the chest radiating to both forearms with associated shortness of breath and diaphoresis. She checked her heart rate at that time was 140s to 150s. Blood pressure was around 130 systolic. She contacted 911 and came to the ED for further evaluation. Upon arrival to the ED her chest pain and has resolved but she was still feeling a bit short of breath especially when talking. She reported 20 lb weight gain past month also had COVID-19 2 weeks ago. She denies any fever cough or congestion. No history of VTE. She follows with napping machine operator regularly had a history of STEMI in 2019. Her vitals on arrival to the ED showed hypertension otherwise unremarkable. [place] [address] hemoglobin 13.3 platelet 230 tree bicarb of 20 T renal function was good blood sugars 192. INR 1.2 LFTs were normal troponin was negative at less than 0.012 BNP was 239. Lipase 225. D-dimer normal EKG With EMS showed SVT at the rate of 150 beats per minute. EKG upon arrival to the ED showed sinus rhythm with beat of 87 beats per minute. T-wave inversion in lead V3 and ST depression in lead 2 which is unchanged from prior EKG. Chest x-ray showed no acute cardiopulmonary abnormality. She is admitted in the setting for further treatment. she had been on metoprolol tartrate 25 mg b.i.d. Cardiology has been consulted. Serial troponins been negative Going for nuclear stress test today and also getting an echocardiogram. Chronic neck and back pain Hypertension Hyperlipidemia Supraventricular tachycardia Coronary artery disease History of stroke Diabetes Diastolic heart failure chronic Seizure disorder DVT prophylaxis SCDs Code status full code Subjective Date/time seen: 11/05/23 09:17 Interval history: Chart reviewed. no new complaints. No further chest pain. No shortness of breaths. Going for a stress test and echo today. Review of Systems Review of Systems: All systems reviewed & are unremarkable except as noted in HPI and below Exam Narrative: GENERAL: Well-appearing, well-nourished, and in no acute distress. HEAD: Normocephalic, atraumatic. EYES: PERRLA and EOMI. ENT: Nares clear, no rhinorrhea or epistaxis. Mucous membranes moist. NECK: Supple. CHEST: Clear to auscultation. No respiratory distress. HEART: Regular rate and rhythm. No murmur heard. Normal peripheral pulses. ABDOMEN: Soft, nontender, nondistended, normal active bowel sounds. EXTREMITIES: Normal range of motion. No edema. SKIN: Warm, dry, no rash. NEURO: No focal deficits. Alert and oriented x3 Objective Data Vital Signs Vital Signs: Vital Signs - 24 hr 11/04/23 17:06 11/04/23 17:15 11/04/23 17:25 Temperature 98.6 F Pulse Rate 96 89 Respiratory Rate 14 17 Blood Pressure 170/84 H 156/91 H Pulse Oximetry 96 96 97 Oxygen Delivery Room Air Room Air 11/04/23 19:44 11/04/23 21:07 11/04/23 21:33 Temperature 97.5 F L 98.4 F 98.7 F Pulse Rate 66 63 Respiratory Rate 12 17 Blood Pressure 134/84 133/89 Pulse Oximetr
[2023-11-05] MEDS: MORPHINE SULFATE (*CRX) 30 MG TABCR PO (09:18)
[2023-11-05] MEDS: polyethylene glycoL 3350 17 GM POWD.PACK PO (09:20)
--- NOTE | 2023-11-05 09:27 | PHAR ---
The patient's home med of TOPIRAMATE 200 MG TABLET has been verified.
[2023-11-05] MEDS: PHARMACIST COMMUNICATION ORDER 1 EACH XX (12:01)
--- NOTE | 2023-11-05 13:38 | PC.NURSE ---
1045- to [place] for stress test
[2023-11-05] MEDS: METOPROLOL TARTRATE 12.5 MG TABLET 37.5 MG PO (20:04)
[2023-11-06] VITALS (12 sets, daily range): BP systolic 101–139; BP diastolic 61–78; PULSE 54–84; RESP 16–20; TEMP 36.3–36.7; O2SAT 98–100
[2023-11-06 04:50] LABS: Basophils Absolute Auto 0.1 K/mm3 (0.0-0.1); Basophils Percent Auto 0.8 % (0.2-1.2); Eosinophils Absolute Auto 0.3 K/mm3 (0-0.3); Eosinophils Percent Auto 3.5 % (0-4.4); Hematocrit 38.4 % (37.0-47.0); Hemoglobin 12.1 g/dL (12.0-15.0); Immature Granulocyte Absolute 0.07 K/mm3 (0.00-0.031); Immature Granulocyte Percent A 0.8 % (0-0.5); Lymphocytes Absolute Auto 2.46 K/mm3 (0.9-3.2); Lymphocytes Percent Auto 28.1 % (18.3-44.2); Mean Corpuscular HGB Conc 31.5 g/dl (32-36); Mean Corpuscular Hemoglobin 29.1 pg (26-34); Mean Corpuscular Volume 92.3 fl (80-100); Mean Platelet Volume 10.9 fl (7.4-10.4); Monocytes Absolute Auto 0.7 K/mm3 (0.1-0.6); Monocytes Percent Auto 7.5 % (2.6-8.5); Neutrophils Absolute Auto 5.2 K/mm3 (1.3-6.7); Neutrophils Percent Auto 59.3 % (45.5-73.1); Platelet Count Result 228 k/mm3 (150-375); Red Blood Count 4.16 M/mm3 (4.2-5.4); Red Cell Distribution Width 13.6 % (11.5-14.5); White Blood Count 8.8 K/mm3 (4.5-10.0)
[2023-11-06 05:05] LABS: Alanine Aminotransferase 18 U/L (6-35); Albumin Level 4.1 g/dL (3.5-5.1); Alkaline Phosphatase 63 U/L (38-126); Anion Gap 11 mmol/L (4-12); Aspartate Amino Transferase 34 U/L (14-36); Bilirubin,Total 0.7 mg/dL (0.2-1.3); Blood Urea Nitrogen 14 mg/dL (7-17); Calcium 9.5 mg/dL (8.4-10.2); Carbon Dioxide 22 mmol/L (22-30); Chloride 106 mmol/L (98-107); Estimated CRCL calculation 66 ml/min; Estimated Glomerular Filt Rate > 60; Glucose 111 mg/dL (65-110); Potassium 4.2 mmol/L (3.4-5.0); Sodium 139 mmol/L (137-145)
--- NOTE | 2023-11-06 08:10 | PM.PNCARD ---
Progress Note: A&P Assessment and Plan (1) Chest pain: Qualifiers: Chest pain type: unspecified Qualified Code(s): R07.9 - Chest pain, unspecified Code(s): R07.9 - Chest pain, unspecified Status: Acute Assessment and Plan: Resolved. NV r/o by serial troponin and EKG. 11/05/23 lexiscan myoview stress test and echo were normal. (2) SVT (supraventricular tachycardia): Code(s): I47.10 - Supraventricular tachycardia, unspecified Status: Acute Assessment and Plan: Back in Sinus rhythm. Increase Metoprolol Tartate 37.5 mg BID. June d/c home from cardiology standpoint and f/u with Dr. Josué Boland at [facility] in 1 week. (3) Hyperlipidemia: Code(s): E78.5 - Hyperlipidemia, unspecified Status: Acute Assessment and Plan: On Zetia. Statins cause itching. (4) Essential hypertension: Code(s): I10 - Essential (primary) hypertension Status: Acute Assessment and Plan: Stable. Subjective Date/time seen: 11/06/23 08:10 Interval history: Denies any more chest pain or sob. Exam Const: General: cooperative, healthy appearing and comfortable Orientation/consciousness: oriented to person, oriented to place and oriented to time Resp: Auscultation: clear to auscultation bilaterally, no crackles, no rales, no rhonchi and no wheezes Cardio: Rate: regular rate Rhythm: regular rhythm Heart sounds: no murmurs Peripheral pulses: dorsalis pedis present Neuro: General: oriented to person, oriented to place and oriented to time Extrem: Right lower extremity: no edema Left lower extremity: no edema Objective Data Vital Signs Vital Signs: Vital Signs - 24 hr 11/05/23 09:15 11/05/23 12:00 11/05/23 08:40 Temperature 98.1 F Pulse Rate 80 64 84 Respiratory Rate 16 Blood Pressure 135/75 Pulse Oximetry 99 Oxygen Delivery 11/05/23 10:00 11/05/23 12:55 11/05/23 13:00 Temperature Pulse Rate 70 90 125 H Respiratory Rate Blood Pressure Pulse Oximetry Oxygen Delivery 11/05/23 13:58 11/05/23 14:10 11/05/23 16:00 Temperature 98.3 F Pulse Rate 91 97 65 Respiratory Rate 20 Blood Pressure 129/69 Pulse Oximetry 98 Oxygen Delivery 11/05/23 16:05 11/05/23 18:00 11/05/23 19:58 Temperature Pulse Rate 65 81 81 Respiratory Rate 20 Blood Pressure Pulse Oximetry 98 Oxygen Delivery Room Air 11/05/23 20:04 11/05/23 20:18 11/05/23 20:00 Temperature 98.0 F Pulse Rate 68 65 68 Respiratory Rate 20 Blood Pressure 124/68 Pulse Oximetry 100 Oxygen Delivery 11/05/23 22:00 11/05/23 23:35 11/06/23 00:00 Temperature 98.1 F Pulse Rate 70 52 L 55 L Respiratory Rate 20 Blood Pressure 110/69 Pulse Oximetry 98 Oxygen Delivery 11/06/23 00:00 11/06/23 02:00 11/06/23 04:00 Temperature 97.7 F Pulse Rate 55 L 54 L 62 Respiratory Rate 20 20 Blood Pressure 101/61 Pulse Oximetry 98 99 Oxygen Delivery Room Air 11/06/23 03:50 11/06/23 04:00 11/05/23 21:23 Temperature Pulse Rate 54 L 60 Respiratory Rate 20 Blood Pressure Pulse Oximetry 98 98 Oxygen Delivery Room Air Room Air 11/06/23 06:00 Temperature Pulse Rate 60 Respiratory Rate Blood Pressure Pulse Oximetry Oxygen Delivery Intake/Output Intake/Output: Intake & Output 11/03/23 11/04/23 11/05/23 11/06/23 23:59 23:59 23:59 23:59 Intake Total 500 1940 550 Output Total 300 400 300 Balance 200 1540 250 Meds/Results Medications: Active Medications Generic Name Dose Route Start Last Admin Trade Name Freq PRN Reason Stop Dose Admin Albuterol 1 puff 11/05/23 02:49 Albuterol Sulfate (*Sp) Aerosol 1 Puff INHALATION Q4HRT PRN shortness of breath or wheezing Aspirin 81 mg 11/05/23 08:00 11/05/23 09:16 Aspirin 81 Mg Chewable Tablet PO 81 mg DAILY@0800 TRUONG Administration Clobetasol Propionate 1 applic 11/05/23 09:00 11/05/23 09:17 C
[2023-11-06] MEDS: PANTOPRAZOLE 40 MG TABLET PO (09:27)
[2023-11-06] MEDS: METOPROLOL TARTRATE 12.5 MG TABLET 37.5 MG PO (09:27)
[2023-11-06] MEDS: CLOPIDOGREL BISULFATE 75 MG TABLET PO (09:27)
[2023-11-06] MEDS: ASPIRIN 81 MG CHEWABLE TABLET PO (09:28)
[2023-11-06] MEDS: LORATADINE 10 MG TABLET PO (09:28)
[2023-11-06] MEDS: MORPHINE SULFATE (*CRX) 30 MG TABCR PO (09:28)
[2023-11-06] MEDS: polyethylene glycoL 3350 17 GM POWD.PACK PO (09:28)
--- NOTE | 2023-11-06 13:36 | PM.DS ---
DS: Admitting Diagnosis Discharge Date 11/06/23 Admitting Diagnosis Chest pain DS: Discharge Diagnosis Discharge Diagnosis (1) Chest pain: Qualifiers: Chest pain type: unspecified Qualified Code(s): R07.9 - Chest pain, unspecified Code(s): R07.9 - Chest pain, unspecified Status: Acute (2) SVT (supraventricular tachycardia): Code(s): I47.10 - Supraventricular tachycardia, unspecified Status: Acute (3) Diastolic heart failure: Code(s): I50.30 - Unspecified diastolic (congestive) heart failure Status: Acute (4) Chronic renal insufficiency, stage II (mild): Code(s): N18.2 - Chronic kidney disease, stage 2 (mild) Status: Acute (5) Essential hypertension: Code(s): I10 - Essential (primary) hypertension Status: Acute DS: Summary Hospital Course Reason for hospitalization: 63yo female with CHF, CKD, DM and HTN here for chest pain. Please see H&P for details. Hospital Course: Patient at home developed chest pain. She noted that her heart rate was 140-150. EMS EKG showed SVT. Patient converted to normal sinus rhythm by the time she arrived to the ED. EKG here showed normal sinus rhythm with nonspecific ST and T-wave changes in the anterior lateral and inferior leads. Chest x-ray was clear. D-dimer was negative. Troponin was negative x3. Lipase was normal. She was admitted and placed on telemetry. Cardiology was consulted. Metoprolol added to her regiment. Echocardiogram showed EF of 60-65% with normal diastolic function. She had trace valvular disease. Lexiscan stress test showed an abnormal Lexiscan stress test for ischemic ST changes by ECG criteria with 2mm downsloping ST depression in inferior leads and V3-V6 but her nuclear images showed no definitive reversible or fixed perfusion abnormalities to suggest ischemia or infarct. There is no segmental wall motion abnormalities. EF was greater than 70%. She did not have any recurrence of chest pain. She overall did well and was able to be discharged home on 11/06/23. Status at Discharge Cognitive/behavioral status at discharge: stable Time Spent with Patient Time attestation: Total time spent providing and/or coordinating discharge services: 35 minutes Time spent: Greater than 30 minutes Exam Narrative: AF 98.1 139/78 64 16 99% ra Gen - NARD Chest - CTA bilaterally, nml RR CV - RRR S1/S2. Tele showing no significant dysrhthmias Abd - Soft, NT/ND, Positive BS Ext - No pedal edema Neuro - Alert and oriented. Nonfocal exam. Psych - Nml mood and affect Skin - Warm and dry DS: Data Data Completed and Pending Labs on day of discharge: Labs from last 24 hours 11/06/23 04:05 WBC 8.8 RBC 4.16 L Hgb 12.1 Hct 38.4 MCV 92.3 MCH 29.1 MCHC 31.5 L RDW 13.6 Plt Count 228 MPV 10.9 H Immature Gran % (Auto) 0.8 H Neut % (Auto) 59.3 Lymph % (Auto) 28.1 [place] % (Auto) 7.5 Eos % (Auto) 3.5 Baso % (Auto) 0.8 Lymph # (Auto) 2.46 [place] # (Auto) 0.7 H Eos # (Auto) 0.3 Baso # (Auto) 0.1 Abs Immat Gran (auto) 0.07 H Absolute Neuts (auto) 5.2 Absolute Nucleated RBC 0.000 Nucleated RBC % 0.0 Sodium 139 Potassium 4.2 Chloride 106 Carbon Dioxide 22 Anion Gap 11 BUN 14 Creatinine 0.80 Estim Creat Clear Calc 66 Estimated GFR > 60 Glucose 111 H Calcium 9.5 Magnesium 2.0 Total Bilirubin 0.7 AST 34 ALT 18 Alkaline Phosphatase 63 Total Protein 8.0 Albumin 4.1 Discharge Plan Discharge Attending physician on discharge: Rashi Singh Consulting providers: Arnaldo Haywood Discharging Clinician: Rashi Singh Anticipated Discharge Date/Time: 11/06/23 13:58 Patient Disposition: Home, Self-Care Activity: as tolerated Diet: heart healthy Discharge Instructions: Check blood pressure 1 to 2 times a day. Record and bring into your doctor for review. Call your doctor if your blood pressure is
== END 2023-11-06 16:04 | disposition home or self-care (01) ==
LOC: ANHED 20:23 → ANHIMU 22:31
PROVIDERS: Emergency Medicine; Internal Medicine; Admitting Provider Internal Medicine; Emergency Provider Physician Assistant; PCP Family Medicine; Visit Provider Internal Medicine
DX: R07.9 Chest pain, unspecified (principal); I47.10 Supraventricular tachycardia, unspecified; I13.0 Hypertensive heart and chronic kidney disease with heart failure and stage 1 through stage 4 chronic kidney disease, or unspecified chronic kidney disease; N18.2 Chronic kidney disease, stage 2 (mild); E11.22 Type 2 diabetes mellitus with diabetic chronic kidney disease; I50.30 Unspecified diastolic (congestive) heart failure; I25.10 Atherosclerotic heart disease of native coronary artery without angina pectoris; I25.2 Old myocardial infarction; E78.5 Hyperlipidemia, unspecified; G40.909 Epilepsy, unspecified, not intractable, without status epilepticus; Z86.16 Personal history of COVID-19; Z86.73 Personal history of transient ischemic attack (TIA), and cerebral infarction without residual deficits; Z79.899 Other long term (current) drug therapy
CPT/HCPCS: 36415; 71046; 78452; 80053; 82010; 83690; 83735; 83880; 84484; 85025; 85380; 85610; 85730; 93005; 93017; 93306; 99285; A9270; A9502; G0378; J2785; J7120